=== PATIENT | female | born 1945 | race Caucasian/White ===

== ENCOUNTER → 2019-12-28 12:29 | Outpatient (CLI) | payer MEDICARE, SELFPAY ==
--- NOTE | ~2019-12-28 | MM_ITS ---
EXAMINATION: MM screening kyler BI w marychuy HISTORY: Screening TECHNIQUE: Craniocaudal and mediolateral oblique 3-D tomosynthesis images were obtained and synthetic 2-D images were generated. CAD analysis was submitted and interpreted. COMPARISON: Comparison to multiple prior studies sequentially, with oldest reviewed study dated 01/05. BREAST PARENCHYMAL COMPOSITION: The breasts are heterogenously dense, which may obscure small masses. FINDINGS: There are developing asymmetries in the upper outer quadrant of the right breast. The left breast is stable without evidence for malignancy. There are benign breast calcifications. IMPRESSION: 1. Developing right breast asymmetries. 2. Additional mammographic views and possible breast ultrasound are recommended. BI-RADS Category 0: Incomplete: Needs additional imaging evaluation. Reviewed, dictated and finalized at location A. IMPRESSION: 1. Developing right breast asymmetries. 2. Additional mammographic views and possible breast ultrasound are recommended . BI-RADS Category 0: Incomplete: Needs additional imaging evaluation.
== END ==
PROVIDERS: PCP Family Medicine; Visit Provider Obstetrics & Gynecology Gynecology
DX: Z12.31 Encounter for screening mammogram for malignant neoplasm of breast (principal); R92.8 Other abnormal and inconclusive findings on diagnostic imaging of breast
CPT/HCPCS: 77063; 77067

== ENCOUNTER → 2020-01-09 09:23 | Outpatient (CLI) | payer MEDICARE, SELFPAY ==
--- NOTE | ~2020-01-09 | MMUS_ITS ---
EXAMINATION: MM diagnostic mammo unilat RT, US breast RT complete HISTORY: Developing right breast mammographic asymmetries reported on 12/28/2019 bilateral digital scr eening mammogram examination TECHNIQUE: Additional 3-D tomosynthesis images of the right breast were performed and synthetic 2-D i mages were generated. CAD analysis was submitted and interpreted. High resolution complete right mike st ultrasound was performed. COMPARISON: 12/28/2019 bilateral digital screening mammogram FINDINGS: MAMMOGRAPHIC FINDINGS: Arterial calcifications are noted. There are scattered punctate benign microcalcifications. No malign ant calcification is evident. No reproducible mass is evident. The heterogeneous dense stroma however may obscure masses. Complete right breast ultrasound examination was performed. ULTRASOUND: 12:00 subareolar area: Parallel circumscribed hypoechoic 6.6 x 4.1 x 8.5 mm lesion with through trans mission, appearing sonographically benign 1:00 subareolar area: Parallel circumscribed 4.9 x 3.4 x 5.6 mm hypoechoic heterogeneous lesion, with out internal vascularity or suspicious shadowing 3:00 3 cm from nipple: 3 x 5.2 mm circumscribed lesion with septation, likely a small septated cyst 9:00 6 cm from nipple: Parallel circumscribed hypoechoic 12 x 4 x 8 mm lesion with internal vasculari ty, irregular margins. Ultrasound-guided biopsy is recommended. IMPRESSION: 1. 12 x 4 x 8 mm irregular mass with internal vascularity at 9:00 6 cm from nipple 2. Ultrasound-guided biopsy of 9:00 lesion 6 cm from nipple is recommended. BI-RADS Category 4: Suspicious abnormality; biopsy should be considered Reviewed, dictated and finalized at location A. IMPRESSION: 1. 12 x 4 x 8 mm irregular mass with internal vascularity at 9:00 6 cm from nip ple 2. Ultrasound-guided biopsy of 9:00 lesion 6 cm from nipple is recommended. BI-RADS Category 4: Suspicious abnormality; biopsy should be considered
== END ==
PROVIDERS: PCP Family Medicine; Visit Provider Obstetrics & Gynecology Gynecology
DX: R92.8 Other abnormal and inconclusive findings on diagnostic imaging of breast (principal)
CPT/HCPCS: 76641; 77065

== ENCOUNTER → 2021-05-09 11:07 | Outpatient (CLI) | payer MEDICARE, SELFPAY ==
--- NOTE | ~2021-05-09 | DEXA_ITS ---
Bone Density Report Name: JAMEL MARTIN Age: 75 Sex: Female Ethnicity: White Date of : 1945 Indication: osteopenia; monitoring treatment; height loss; postmenopausal Referring Provider: AMANDA ESPOSITO Study: Bone densitometry was performed. Exam Date: May 09, 2021 Accession number: [id number] Bone Density: Region BMD T-score Z-score Classification AP Spine (L1-L4) 0.875 -1.6 0.8 Osteopenia Femoral Neck (Left) 0.686 -1.5 0.6 Osteopenia Total Hip (Left) 0.762 -1.5 0.3 Osteopenia Femoral Neck (Right) 0.760 -0.8 1.3 Normal Total Hip (Right) 0.811 -1.1 0.7 Osteopenia Total Hip Mean 0.787 -1.3 0.5 Osteopenia World Health Organization criteria for BMD impression classify patients as: Normal (T-score at or above -1.0), Osteopenia (T-score between -1.0 and -2.5), or Osteoporosis (T-score at or below -2.5). 10-year Fracture Risk: FRAX not reported because: Treated for osteoporosis Previous Exams: Region Exam Age BMD T-score BMD Change BMD Change Date g/cm2 vs Baseline vs Previous AP Spine(L1-L4) 05/09/2021 75 0.875 -1.6 0.015 -0.024* 12/23/2018 73 0.899 -1.3 0.039* 0.024* 09/05/2015 70 0.875 -1.6 0.015 -0.003 01/05/2013 67 0.878 -1.5 0.018 0.018 12/17/2010 65 0.860 -1.7 Total Hip(Left) 05/09/2021 75 0.762 -1.5 -0.045* -0.006 12/23/2018 73 0.768 -1.4 -0.039* -0.033* 09/05/2015 70 0.801 -1.2 -0.006 -0.007 01/05/2013 67 0.808 -1.1 0.001 0.001 12/17/2010 65 0.807 -1.1 Total Hip(Right) 05/09/2021 75 0.811 -1.1 -0.036* -0.010 12/23/2018 73 0.822 -1.0 -0.025 -0.013 09/05/2015 70 0.835 -0.9 -0.012 -0.022 01/05/2013 67 0.857 -0.7 0.010 0.010 12/17/2010 65 0.847 -0.8 *Denotes significance at 95% confidence level, LSC for AP Spine = 0.022 g/cm2, LSC for Total Hip = 0.027 g/cm2 Clinical Information Provided by Patient: Is being treated for osteoporosis Has used the following medications: HRT (i.e. estrogen/hormone therapy), Vitamin D, Calcium Patient maximum height was 65.8 Menopause Age: 51 No regular weight bearing exercise Drinks caffeinated beverages Onset of menses at age 14 Number of children 1 Impression: The patient has low bone mass, based on th
--- NOTE | ~2021-05-09 | MM_ITS ---
EXAMINATION: MM screening kyler BI w marychuy HISTORY: Screening TECHNIQUE: Craniocaudal and mediolateral oblique 3-D tomosynthesis images were obtained and synthetic 2-D images were generated. CAD analysis was submitted and interpreted. COMPARISON: Comparison to multiple prior studies sequentially, with oldest reviewed study dated 09/2018. BREAST PARENCHYMAL COMPOSITION: The breasts are heterogenously dense, which may obscure small masses FINDINGS: There is no evidence of suspicious mass, calcification, or architectural distortion to sugg est malignancy in either breast. There has been no suspicious interval change. IMPRESSION: 1. No mammographic evidence of malignancy. 2. Recommend routine screening mammography in one year. BI-RADS Category 1: Negative Reviewed, dictated and finalized at location A. SUPERVISOR
== END ==
PROVIDERS: PCP Family Medicine; Visit Provider Obstetrics & Gynecology Gynecology
DX: Z12.31 Encounter for screening mammogram for malignant neoplasm of breast (principal); Z78.0 Asymptomatic menopausal state; M85.88 Other specified disorders of bone density and structure, other site; M85.852 Other specified disorders of bone density and structure, left thigh; M85.851 Other specified disorders of bone density and structure, right thigh
CPT/HCPCS: 77063; 77067; 77080

== ENCOUNTER → 2021-12-23 09:52 | Outpatient (CLI) | payer MEDICARE, SELFPAY ==
[2021-12-23 12:00] LABS: Influenza A QL RT-PCR Negative (Negative); Influenza B QL RT-PCR Negative (Negative); SARS-CoV-2 RNA PCR Negative
== END ==
PROVIDERS: PCP Family Medicine; Visit Provider Family Medicine
DX: J06.9 Acute upper respiratory infection, unspecified (principal); Z20.822 Contact with and (suspected) exposure to COVID-19
CPT/HCPCS: 87502; C9803; U0003; U0005

== ENCOUNTER → 2021-12-24 13:43 | Outpatient (CLI) | payer MEDICARE, SELFPAY ==
--- NOTE | ~2021-12-24 | XR_ITS ---
EXAMINATION: XR chest 2V Exam Date/Time: 12/24/2021 13:47 CDT HISTORY: cough Comparison: 09/01/2013. RESULT: Lines, tubes, and devices: None. Lungs and pleura: Senescent change. Granulomatous calcification. Biapical pleural thickening. Simila r nodular densities projecting in the retrosternal clear space, without suspicious change room attendant multip le years. Cardiomediastinal silhouette: Stable. Other: No acute osseous or upper abdominal finding. IMPRESSION: No acute cardiopulmonary process. Reviewed, dictated and finalized at location K.
== END ==
PROVIDERS: PCP Family Medicine; Visit Provider Family Medicine
DX: R05.9 Cough, unspecified (principal)
CPT/HCPCS: 71046

== ENCOUNTER 2022-07-13 17:07 | Outpatient (CLI) | payer OTHER, MEDICARE, SELFPAY ==
--- NOTE | ~2022-07-13 | MR_ITS ---
MRI of the left knee Clinical history: Pain Technique: Coronal proton density and proton density-weighted images, sagittal proton-density and T2 fat-sat images, and axial proton-density fat-saturated images were acquired. Findings: Anterior and posterior cruciate ligaments are intact. Medial collateral ligament and the la teral collateral ligament complex are intact. Popliteus tendon is intact. Medial and lateral menisci are intact, without evidence of tear. 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 Articular cartilage in the medial and lateral compartments i s relatively well-preserved, with scattered areas of minimal thinning. No suspicious bone marrow sign al abnormality seen. Extensor mechanism is intact. Minimal joint effusion present. No Jimenez's cyst. 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 Minimal degenerati ve change of the medial and lateral compartments. Reviewed, dictated and finalized at location . 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 Minimal degenerative change of the medial and lateral compartments.
== END 2022-07-13 17:08 ==
PROVIDERS: PCP Family Medicine
DX: M17.12 Unilateral primary osteoarthritis, left knee (principal)
CPT/HCPCS: 73721

== ENCOUNTER → 2022-07-24 11:25 | Outpatient (CLI) | payer MEDICARE, SELFPAY ==
--- NOTE | ~2022-07-24 | MM_ITS ---
EXAMINATION: MM screening kyler BI w marychuy HISTORY: Screening TECHNIQUE: Craniocaudal and mediolateral oblique 3-D tomosynthesis images were obtained and synthetic 2-D images were generated. CAD analysis was submitted and interpreted. COMPARISON: Comparison to multiple prior studies sequentially, with oldest reviewed study dated 05/2015. BREAST PARENCHYMAL COMPOSITION: The breasts are heterogeneously dense, which may obscure small masses FINDINGS: Mass in the upper outer quadrant of the right breast posteriorly with adjacent tissue marke r has enlarged since prior study. There is a cluster of punctate calcifications in the lateral aspect of the left breast posteriorly on CC view. There is a developing asymmetry in the upper outer quadra nt of the left breast. IMPRESSION: 1. Enlarging right breast mass upper outer quadrant posteriorly. Developing left breast asymmetry and clustered indeterminate calcifications. 2. Additional spot compression and mediolateral views with possible follow-up breast ultrasound recom mended. BI-RADS Category 0: Incomplete: Needs additional imaging evaluation. Reviewed, dictated and finalized at location A. IMPRESSION: 1. Enlarging right breast mass upper outer quadrant posteriorly. Developing lef t breast asymmetry and clustered indeterminate calcifications. 2. Additional spot compression and mediolateral views with possible follow-up b reast ultrasound recommended. BI-RADS Category 0: Incomplete: Needs additional imaging evaluation.
== END ==
PROVIDERS: PCP Family Medicine; Visit Provider Obstetrics & Gynecology Gynecology
DX: Z12.31 Encounter for screening mammogram for malignant neoplasm of breast (principal); R92.8 Other abnormal and inconclusive findings on diagnostic imaging of breast
CPT/HCPCS: 77063; 77067

== ENCOUNTER → 2022-08-21 07:58 | Outpatient (CLI) | payer MEDICARE, SELFPAY ==
--- NOTE | ~2022-08-21 | MMUS_ITS ---
EXAMINATION: MM diagnostic kyler BI w marychuy, US breast RT limited HISTORY: Right breast mass and left breast calcifications and focal asymmetry on screening mammogram TECHNIQUE: Additional 3-D tomosynthesis images of the breasts were performed and synthetic 2-D images were generated. Magnification views of the left breast are also performed. CAD analysis was submitte d and interpreted. High resolution limited right breast ultrasound was performed. COMPARISON: 07/24/2022, 05/09/2021, 01/09/2020, 12/28/2019 FINDINGS: MAMMOGRAPHIC FINDINGS: Left breast: The left breast focal asymmetry is a stable appearance with spot compression views when compared to prior mammograms. An associated biopsy marker is noted. Grouped calcifications in the pos terior third of the outer breast are too small in size and two too few in number for morphologic manuela acterization. Right breast: An approximately 12 mm mass in the posterior third of the outer breast with an associat ed biopsy marker has an appearance similar to prior mammograms with spot compression. ULTRASOUND: There is slight interval increase in size, but otherwise no other change, of a now 1.6 x 0.6 cm hypoe choic mass at the 9:00 location 6 cm from the nipple in the right breast. An internal biopsy marker i s noted. IMPRESSION: 1. Probably benign left breast calcifications and biopsy changes of the right breast mass and questio n. 2. Recommend 6 month follow-up left diagnostic mammogram to evaluate the calcifications. Recommend co rrelation with right breast biopsy results to determine if interval increase in size, with no other c oncerning change, would be of clinical concern. BI-RADS category 3, probably benign findings. Reviewed, dictated and finalized at location A. IMPRESSION: 1. Probably benign left breast calcifications and biopsy changes of the right b reast mass and question. 2. Recommend 6 month follow-up left diagnostic mammogram to evaluate the calcif ications. Recommend correlation with right breast biopsy results to determine i f interval increase in size, with no other concerning change, would be of clini stephanie concern. BI-RADS category 3, probably benign findings.
== END ==
PROVIDERS: PCP Family Medicine; Visit Provider Obstetrics & Gynecology Gynecology
DX: R92.8 Other abnormal and inconclusive findings on diagnostic imaging of breast (principal)
CPT/HCPCS: 76642; 77062; 77066; G0279

== ENCOUNTER → 2022-08-21 08:15 | Outpatient (CLI) | payer MEDICARE, SELFPAY ==
--- NOTE | ~2022-08-21 | US_ITS ---
Pelvic ultrasound. Clinical History: Postmenopausal bleeding Technique: Realtime transabdominal and transvaginal scanning of the pelvis was performed. Color flow Doppler and Doppler spectral analysis were performed. Findings: The uterus is retroverted. The endometrial stripe has a thickness of 5 mm. There is a hete rogeneous masslike lesion in the lower uterine segment or cervix measuring 1.6 x 1.2 x 1.3 cm. There is a hypoechoic fibroid towards the uterine fundus measuring 1.8 cm in diameter. Millimeter ovary seen. No adnexal mass seen. There is no evidence of free fluid in the cul de sac. Impression: No abnormal endometrial thickening. 1.8 cm fibroid at the uterine fundus. 1.6 cm heterogeneous masslike lesion at the lower uterine segment or cervix. This possibly represent additional fibroid versus any possibility of cervical mass or complex nabothian cyst. Reviewed, dictated and finalized at [facility]. Impression: No abnormal endometrial thickening. 1.8 cm fibroid at the uterine fundus. 1.6 cm heterogeneous masslike lesion at the lower uterine segment or cervix. Th is possibly represent additional fibroid versus any possibility of cervical mas s or complex nabothian cyst.
== END ==
PROVIDERS: PCP Family Medicine; Visit Provider Nurse Practitioner
DX: N95.0 Postmenopausal bleeding (principal); D25.9 Leiomyoma of uterus, unspecified
CPT/HCPCS: 76830

== ENCOUNTER 2022-10-12 00:55 | Day surgery (SDC) | payer MEDICARE, SELFPAY ==
[2022-10-05 13:30] VITALS: BMI 18.6
--- NOTE | 2022-10-05 13:52 | PC.NURSE ---
Report to the Outpatient Waiting Room, entrance under the green pavilion located off [address], at time __0830 on date __10/12/22 . Planned Procedure Time: __1030 . Time changes happen often and if your time is changed the preop area will call you the afternoon before. - You and your visitor will be asked to self-screen and do not enter if you have any COVID symptoms. - A mask is optional within the hospital at this time. Patients may have clear liquids (water, carbonated beverages, clear teas, apple juice) until 3 hours prior to surgery (0730 AM) with a maximum of 20 ounces. - No food from midnight until time of surgery - Infants may have breast milk until 4 hours before surgery, infant formula 6 hours prior to surgery. - Children will be allowed to drink immediately following surgery. If applicable, please bring a bottle or sippy cup to assist with drinking. Juice, water, soda, and popsicles are readily available. For infants on formula, please bring formula the day of surgery. Pacifiers are allowed. Take the following medications with a SIP of water the morning of surgery: __TYLENOL IF NEEDED__ DO NOT STOP ANY OF YOUR OTHER PRESCRIPTION MEDICATIONS PRIOR TO SURGERY ?EXCEPT THE FOLLOWING Medications to discontinue per physician NONE Date to take last dose Please no make-up, nail brit[place] virgin islander, hairspray, perfume, deodorant, or body powder the day of surgery. No jewelry (including any body piercings) or valuables the day of surgery, leave them at home. Please take a shower or bath the night before, or the morning of, surgery with an antibacterial soap. Wear comfortable, loose fitting clothing. Children are encouraged to wear pajamas. - Jewelry must be removed prior to entering the operating room. Rings and piercings that are not removed may be cut off. - The hospital will not accept responsibility for valuables. - Please leave all valuables, including medications, at home the day of surgery. If you are going home after surgery, a licensed retail delivery driver must drive you home. - NO public transportation without another adult if you receive anesthesia. - We recommend that an adult stay with you for 24 hours following discharge. - We also recommend that you do not drive, make important decision, drink alcoholic beverages, or take any drugs that were not prescribed by your health care provider for at least 24 hours after your discharge time. For Pediatric surgeries, we recommend two adults accompany the child home. Follow any additional instructions given to you from your surgeon. If you or anyone in your household have experienced Covid symptoms in the past week, please notify your surgeon or the nurse liaison at the phone number below for possible testing. Telephone instructions given to ____PATIENT and asked if any additional questions and then verbalized understanding. Patient advised to call surgeon office or pre surgery nurse liaison [phone] if any additional questions.
--- NOTE | 2022-10-12 08:41 | WPDHPUPDATE1 ---
History and Physical Update Update Date/Time: 10/12/22 08:41 History and Physical has been reviewed, including an updated exam of the patient. There are NO changes in the patient's condition. Risks, benefits, and alternatives have been discussed and questions answered. Patient agrees to proceed with procedure.
--- NOTE | 2022-10-12 08:41 | PM.HPGS ---
History of Present Illness History of Present Illness Consent: Risks, benefits, and alternatives have been discussed and questions answered. Patient agrees to proceed with procedure. Chief complaint: post menopaual bleeding Narrative: Roselia Sarmiento is a 77 year old female with postmenopausal bleeding and a thickened endometrium. It was recommended undergo a D&C hysteroscopy for further evaluation. Patient voiced understanding and agrees to proceed. Risks of infection, bleeding, perforation, and possible pathology are discussed. Review of Systems Review of Systems: not repeated day of surgery; patient states no changes in status [facility] Past Medical History Medical History (Updated 10/12/22 @ 08:46 by Tess Christiansen MD) Chronic rhinitis Migraine without aura and without status migrainosus, not intractable (normal spontaneous vaginal delivery) Primary osteoarthritis of both knees Vitamin B12 deficiency Vitamin D deficiency Surgical History Surgical History (Updated 10/12/22 @ 08:45 by Tess Christiansen MD) History of bilateral breast reduction surgery and breast lift 2010 History of bilateral tubal ligation History of breast biopsy 2019 benign History of hysteroscopy 2004, 2005, 2013 2004 showed simple hyperplasia without atypia 2005 and 2013 were benign History of laparoscopy 2004 Family History Family History Other Diabetes mellitus Family history of cardiovascular disease Social History Social History (Reviewed 10/01/22 @ 08:15 by Tammy Hernandez [facility]) Smoking status: Never smoker Second hand tobacco smoke exposure: No Alcohol intake: never Substance use: never Substance use type: does not use Lack of Transportation: No Lack of Food: Never True Current Housing: I Have Housing Concerned About Future Housing: No Difficulty Paying Gas/Electric Bills: No Difficulty Paying for Meds: No Currently Unemployed: No Education: Trade/Vocational Certificate Difficulty w/ Childcare or Family Care: No Living arrangements: alone Gender identity (if verbalized by the patient): Female Spiritual care concerns: No Agree to blood products: Yes Meds Home Medications and Allergies Home Medications Medication Instructions Recorded Confirmed Type calcium carbonate 500 mg-vitamin 1 tablet PO DAILY 03/27/19 10/05/22 History D3 5 mcg (200 unit) tablet (Calcium 500 + D) estradiol 0.5 mg tablet 0.5 mg PO DAILY 03/27/19 10/05/22 History medroxyprogesterone 2.5 mg tablet 5 mg PO DAILY 03/27/19 10/05/22 History (Provera) loratadine 10 mg tablet 10 mg PO DAILY 01/15/21 10/05/22 History acetaminophen 650 mg 650 mg PO .qd-bid PRN Pain 01/29/22 10/05/22 History tablet,extended release (Tylenol 8 Hour) triamcinolone acetonide 0.1 % See Rx Instructions .Route 07/29/22 10/05/22 Rx topical ointment .COMPLEX #30 grams ergocalciferol (vitamin D2) 1,250 1,250 mcg PO WEEKLY #12 caps 09/16/22 10/05/22 Rx mcg (50,000 unit) capsule (Vitamin D2) cyanocobalamin (vitamin B-12) 1,000 mcg IM MONTHLY #10 mL 10/01/22 10/05/22 Rx 1,000 mcg/mL injection solution meclizine 25 mg tablet 25 mg PO TID PRN dizziness #90 tabs 10/01/22 10/05/22 Rx montelukast 10 mg tablet 10 mg PO QHS #90 tabs 10/01/22 10/05/22 Rx (Singulair) prochlorperazine maleate 10 mg 10 mg PO Q8H PRN nausea and 10/01/22 10/05/22 Rx tablet (Compazine) vomiting #90 tabs syringe with needle 3 mL 25 gauge #12 ea 10/01/22 10/05/22 Rx x 1 (BD Luer-Derrell Syringe) Allergies Allergy/AdvReac Type Severity Reaction Status Date / Time Penicillins Allergy Unknown Hives Verified 10/05/22 13:25 cortisone AdvReac Severe facial Verified 10/05/22 13:25 flushing furosemide AdvReac Mild Pt just Verified 10/05/22 13:25 felt off Exam Const: General: healthy appearing and alert Orientation/consciousness: marzena
[2022-10-12] MEDS: ACETAMINOPHEN 500 MG TABLET 1000 MG PO (09:30)
[2022-10-12] MEDS: LACTATED RINGERS 1,000 ML 30 ML IV CONT (09:30)
--- NOTE | 2022-10-12 09:32 | WPDANESEPPF ---
Anes - Initial Pre Proc Eval Procedure: Operation Date: 10/12/22 10:30 Proposed Procedures p Hysteroscopy Dilation and Curettage - Tess Christiansen MD Date/Time: 10/12/22 09:32 Surgeon: Tess Christiansen MD Pre Op Diagnosis: post menopaual bleeding Patient Data Age: 77 Gender: F Height: 1.63 m Weight: 49.09 kg Allergies Allergy/AdvReac Type Severity Reaction Status Date / Time Penicillins Allergy Unknown Hives Verified 10/05/22 13:25 cortisone AdvReac Severe facial Verified 10/05/22 13:25 flushing furosemide AdvReac Mild Pt just Verified 10/05/22 13:25 felt off Home Medications Medication Instructions Recorded Confirmed Type calcium carbonate 500 mg-vitamin 1 tablet PO DAILY 03/27/19 10/05/22 History D3 5 mcg (200 unit) tablet (Calcium 500 + D) estradiol 0.5 mg tablet 0.5 mg PO DAILY 03/27/19 10/05/22 History medroxyprogesterone 2.5 mg tablet 5 mg PO DAILY 03/27/19 10/05/22 History (Provera) loratadine 10 mg tablet 10 mg PO DAILY 01/15/21 10/05/22 History acetaminophen 650 mg 650 mg PO .qd-bid PRN Pain 01/29/22 10/05/22 History tablet,extended release (Tylenol 8 Hour) triamcinolone acetonide 0.1 % See Rx Instructions .Route 07/29/22 10/05/22 Rx topical ointment .COMPLEX #30 grams ergocalciferol (vitamin D2) 1,250 1,250 mcg PO WEEKLY #12 caps 09/16/22 10/05/22 Rx mcg (50,000 unit) capsule (Vitamin D2) cyanocobalamin (vitamin B-12) 1,000 mcg IM MONTHLY #10 mL 10/01/22 10/05/22 Rx 1,000 mcg/mL injection solution meclizine 25 mg tablet 25 mg PO TID PRN dizziness #90 tabs 10/01/22 10/05/22 Rx montelukast 10 mg tablet 10 mg PO QHS #90 tabs 10/01/22 10/05/22 Rx (Singulair) prochlorperazine maleate 10 mg 10 mg PO Q8H PRN nausea and 10/01/22 10/05/22 Rx tablet (Compazine) vomiting #90 tabs syringe with needle 3 mL 25 gauge #12 ea 10/01/22 10/05/22 Rx x 1 (BD Luer-Derrell Syringe) Patient hx anesthesia problems: post op nausea/vomiting Family hx anesthesia problems: none Results Review: All pre-operative results and documents have been reviewed as part of the pre-operative evaluation. [facility] Past Medical History Medical History Chronic rhinitis Migraine without aura and without status migrainosus, not intractable (normal spontaneous vaginal delivery) Primary osteoarthritis of both knees Vitamin B12 deficiency Vitamin D deficiency Surgical History Surgical History History of bilateral breast reduction surgery and breast lift 2010 History of bilateral tubal ligation History of breast biopsy 2020 benign History of hysteroscopy 2004, 2005, 2013 2004 showed simple hyperplasia without atypia 2005 and 2013 were benign History of laparoscopy 2004 Family History Family History Other Diabetes mellitus Family history of cardiovascular disease Social History Social History Smoking status: Never smoker Second hand tobacco smoke exposure: No Alcohol intake: never Substance use: never Substance use type: does not use Lack of Transportation: No Lack of Food: Never True Current Housing: I Have Housing Concerned About Future Housing: No Difficulty Paying Gas/Electric Bills: No Difficulty Paying for Meds: No Currently Unemployed: No Education: Trade/Vocational Certificate Difficulty w/ Childcare or Family Care: No Living arrangements: alone Gender identity (if verbalized by the patient): Female Spiritual care concerns: No Agree to blood products: Yes Anes - Eval Final PreProcedure Day of Procedure 10/12/22 09:32 Patient weight: normal Heart: regular rate and rhythm Lungs: clear to auscultation Airway: Mallampati scale class II Neurological: alert and oriented
[2022-10-12] MEDS: FAMOTIDINE 20 MG/2 ML VIAL IV PUSH (09:35)
[2022-10-12] MEDS: ONDANSETRON INJ 4 MG/2 ML VIAL IV PUSH (09:35)
[2022-10-12 09:51] VITALS: BP 143/71; PULSE 102; RESP 14; TEMP 37.5; O2SAT 100
--- NOTE | 2022-10-12 10:01 | P.OP_ITS ---
Procedure Note - Detailed Date of Procedure 10/12/22 Pre-op Diagnosis post menopaual bleeding Post-op Diagnosis Same Procedure Performed D&C hysteroscopy Surgeon Tess Christiansen MD Anesthesia MAC Findings uterus sounds to 7cm and appears grossly atrophic; there is an anterior fibroid Description of Procedure The patient is taken to the operating room and placed under anesthesia in the dorsal lithotomy position. She was prepped and draped in the usual sterile fashion. [place] speculum was placed in the vagina and the cervix is grasped on the anterior lip with a tenaculum. The uterus is sounded to 7cm. The diagnostic hysteroscope was placed and with no abnormalities noted it is removed. The OO curette would not pass the internal os. The cervix is serially dilated to a 6 [place]. The curette then passed and the uterus was curetted in a sharp manner until a good uterine cry was noted in all areas. Minimal material was obtained consistent with the atrophic appearance. Instruments are removed. Sponge, needle, and instrument counts are correct per the OR staff. The patient was awakened from anesthesia and taken to recovery in stable condition. Estimated Blood Loss 5 Drains No Packing No Pathology Yes ( Endometrial curettings) Complications No immediate complications Condition Stable Disposition PACU
[2022-10-12 10:03] VITALS: BP 125/56; PULSE 87; RESP 16; O2SAT 100
[2022-10-12 10:30] VITALS: BP 129/62; PULSE 89; RESP 15; O2SAT 100
== END 2022-10-12 10:45 | disposition home or self-care (01) ==
PROVIDERS: PCP Family Medicine; Visit Provider Obstetrics & Gynecology Gynecology
PROC: 0U5B8ZZ Destruction of Endometrium, Via Natural or Artificial Opening Endoscopic (ICD-10-PCS; CPT 58563; principal; 2022-10-12 10:30)
DX: N95.0 Postmenopausal bleeding (principal); D25.9 Leiomyoma of uterus, unspecified; N85.8 Other specified noninflammatory disorders of uterus; E55.9 Vitamin D deficiency, unspecified; E53.8 Deficiency of other specified B group vitamins
CPT/HCPCS: 58558; 88305; A9270; J2405; J2704; J7120

== ENCOUNTER 2022-11-28 12:24 | Emergency (ER) | payer MEDICARE, SELFPAY ==
--- NOTE | 2022-11-28 12:31 | ED.UPPEXIN ---
HPI - Extremity Injury (Upper) General Chief Complaint: Wound/Laceration Stated Complaint: left thumb injury Time Seen by Provider: 11/28/22 12:53 Source: patient and RN notes reviewed Mode of arrival: ambulatory Limitations: no limitations History of Present Illness HPI narrative: 77-year-old female presents with concern for laceration to the 1st digit of her left hand. She reports just prior to arrival she was slicing ham when the knife slipped and she lacerated her finger. She is up-to-date on her tetanus vaccination. She denies decreased strength, sensation, range of motion in the digit. complaint: injury to: left and finger Related Data Home Medications Medication Instructions Recorded Confirmed calcium carbonate 500 mg-vitamin 1 tablet PO DAILY 03/27/19 10/05/22 D3 5 mcg (200 unit) tablet (Calcium 500 + D) estradiol 0.5 mg tablet 0.5 mg PO DAILY 03/27/19 10/05/22 medroxyprogesterone 2.5 mg tablet 5 mg PO DAILY 03/27/19 10/05/22 (Provera) loratadine 10 mg tablet 10 mg PO DAILY 01/15/21 10/05/22 acetaminophen 650 mg 650 mg PO .qd-bid PRN Pain 01/29/22 10/05/22 tablet,extended release (Tylenol 8 Hour) progesterone micronized 100 mg mg 11/28/22 capsule Allergies Allergy/AdvReac Type Severity Reaction Status Date / Time Penicillins Allergy Unknown Hives Verified 11/28/22 12:44 cortisone AdvReac Severe facial Verified 11/28/22 12:44 flushing furosemide AdvReac Mild Pt just Verified 11/28/22 12:44 felt off Review of Systems Review of Systems: CONSTITUTIONAL: Denies malaise, chills, sweats, or fever. SKIN: Laceration to the 1st digit of the left hand MUSCULOSKELETAL: Denies decreased strength, sensation, range of motion of the digit NEUROLOGIC: Denies numbness, weakness All systems reviewed & are unremarkable except as noted in HPI and below PMFSH Past Medical History Medical History Chronic rhinitis Migraine without aura and without status migrainosus, not intractable (normal spontaneous vaginal delivery) Primary osteoarthritis of both knees Vitamin B12 deficiency Vitamin D deficiency Surgical History Surgical History History of bilateral breast reduction surgery and breast lift 2010 History of bilateral tubal ligation History of breast biopsy 2020 benign History of hysteroscopy 2004, 2005, 2013 2005 showed simple hyperplasia without atypia 2005 and 2013 were benign History of laparoscopy 2004 Family History Family History Other Diabetes mellitus Family history of cardiovascular disease Social History Social History Smoking status: Never smoker Second hand tobacco smoke exposure: No Alcohol intake: never Substance use: never Substance use type: does not use Lack of Transportation: No Lack of Food: Never True Current Housing: I Have Housing Concerned About Future Housing: No Difficulty Paying Gas/Electric Bills: No Difficulty Paying for Meds: No Currently Unemployed: No Education: Trade/Vocational Certificate Difficulty w/ Childcare or Family Care: No Living arrangements: alone Gender identity (if verbalized by the patient): Female Spiritual care concerns: No Agree to blood products: Yes Comments At time of signature, agree with nursing past medical, surgical, social and family history. There is no relevant family history pertinent to the presenting complaint Exam Narrative: GENERAL: Well-appearing, well-nourished, and in no acute distress. HEAD: Normocephalic, atraumatic. EYES: PERRLA, conjunctivae clear, and EOMI. ENT: Mucous membranes moist. Oropharynx without edema, erythema or lesions. NECK: Supple. No lymphadenopathy CHEST: Clear to auscultation. No respiratory distr
[2022-11-28 12:41] VITALS: BP 134/85; PULSE 85; RESP 16; TEMP 37.3; O2SAT 99
== END 2022-11-28 13:28 | disposition home or self-care (01) ==
PROVIDERS: Emergency Provider Nurse Practitioner; PCP Family Medicine
DX: S61.012A Laceration without foreign body of left thumb without damage to nail, initial encounter (principal); W26.0XXA Contact with knife, initial encounter; Y93.G1 Activity, food preparation and clean up; M17.0 Bilateral primary osteoarthritis of knee; E55.9 Vitamin D deficiency, unspecified
CPT/HCPCS: 12001; 99212; G0463

== ENCOUNTER → 2023-03-17 08:27 | Outpatient (CLI) | payer MEDICARE, SELFPAY ==
--- NOTE | ~2023-03-17 | MMUS_ITS ---
EXAMINATION: MM diagnostic kyler BI w marychuy, US breast BI complete HISTORY: Six-month follow-up of left breast microcalcifications TECHNIQUE: Additional 3-D tomosynthesis images of both breasts were performed and synthetic 2-D image s were generated. CAD analysis was submitted and interpreted. High resolution complete bilateral [facility] ultrasound in including all 4 quadrants and subareolar areas was performed. COMPARISON: 08/21/2022 bilateral diagnostic mammogram and limited right breast ultrasound 07/24/2022 bilateral screening mammogram BREAST PARENCHYMAL COMPOSITION: The breasts are heterogeneously dense, which may obscure small masses . FINDINGS: MAMMOGRAPHIC FINDINGS: Stable posterior lower outer right breast mass with biopsy marker, reportedly benign biopsy result. Stable fibroglandular asymmetry. Scattered bilateral benign calcifications are noted. No linear or br anching suspicious microcalcifications are noted. No architectural distortion, skin thickening or retraction is evident. ULTRASOUND: There are bilateral scattered small hypoechoic and sonolucent benign-appearing lesions. There is however an area of concern on the left at 2:00 6 cm from the nipple, where a relatively supe rficial irregular hypoechoic approximately 2.5 x 3.5 mm antiparallel lesion is noted. Ultrasound-guid ed biopsy of this left breast 2:00 lesion is recommended. IMPRESSION: 1. Irregular antiparallel hypoechoic 2.5 x 3.5 mm left breast lesion at 2:00 6 cm from nipple 2. Ultrasound-guided biopsy of left breast 2:00 lesion is recommended BI-RADS category 4, suspicious findings. Dr. Sosa telephoned the report and ultrasound-guided biopsy recommendation for left breast 2:00 lesio n on 03/17/2023 at 1205 hours to Nurse Delisa. Reviewed, dictated and finalized at location A. TIC TECHNICIAN IMPRESSION: 1. Irregular antiparallel hypoechoic 2.5 x 3.5 mm left breast lesion at 2:00 6 cm from nipple 2. Ultrasound-guided biopsy of left breast 2:00 lesion is recommended BI-RADS category 4, suspicious findings. Dr. Sosa telephoned the report and ultrasound-guided biopsy recommendation for left breast 2:00 lesion on 03/17/2023 at 1205 hours to Nurse Delisa.
== END ==
PROVIDERS: PCP Family Medicine; Visit Provider Nurse Practitioner
DX: N63.10 Unspecified lump in the right breast, unspecified quadrant (principal); N64.4 Mastodynia; R92.8 Other abnormal and inconclusive findings on diagnostic imaging of breast
CPT/HCPCS: 76641; 77062; 77066; G0279

== ENCOUNTER → 2023-06-02 12:49 | Outpatient (CLI) | payer MEDICARE, SELFPAY ==
--- NOTE | ~2023-06-02 | XR_ITS ---
XR hip LT 2V w AP pelvis DATE: 06/02/2023 13:12 INDICATION: Left hip pain TECHNIQUE: AP pelvis. AP and lateral views of left hip COMPARISON: None FINDINGS: Osteopenia. No pelvic fracture or bone destruction. The pubic symphysis and sacroiliac join ts are normally aligned. Hip joint spaces are symmetric and relatively preserved. No fracture or disl ocation, avascular necrosis or bone destruction of the left hip. IMPRESSION: Osteopenia No pelvic or left hip fracture or dislocation or bone destruction Reviewed, dictated and finalized at location B. O MECHANIC APPRENTICE
== END ==
PROVIDERS: PCP Family Medicine; Visit Provider Family Medicine
DX: M85.852 Other specified disorders of bone density and structure, left thigh (principal)
CPT/HCPCS: 73502

== ENCOUNTER 2023-06-09 09:15 | Outpatient (CLI) | payer MEDICARE, SELFPAY ==
[2023-06-09 10:20] LABS: Influenza A QL RT-PCR Negative (Negative); Influenza B QL RT-PCR Negative (Negative); RSV RNA, RT-PCR Negative (Negative); SARS-CoV-2 RNA PCR Negative (Negative)
== END 2023-06-09 09:16 | disposition home or self-care (01) ==
LOC: ANHLAB 09:17
PROVIDERS: PCP Family Medicine; Visit Provider Physician Assistant
DX: R50.9 Fever, unspecified (principal); Z20.822 Contact with and (suspected) exposure to COVID-19
CPT/HCPCS: 87637

== ENCOUNTER 2023-08-26 09:42 | Outpatient (CLI) | payer MEDICARE, SELFPAY ==
--- NOTE | ~2023-08-26 | XR_ITS ---
EXAMINATION: [id number]_CR DATE: 08/26/2023 09:55 INDICATION: Pleurodynia. TECHNIQUE: A frontal view of the chest and 2 views on 3 radiographs of the left ribs were obtained. COMPARISON: Chest 2 views 12/24/21 FINDINGS: A calcified right lung nodule is consistent with old granulomatous disease. There is mild s carring at the lung apices. No pleural effusion or pneumothorax. The heart size is normal. IMPRESSION: 1. No rib fracture. 2. Stable mild scarring at the lung apices. Reviewed, dictated and finalized at location A.
== END 2023-08-26 09:43 ==
PROVIDERS: PCP Family Medicine; Visit Provider Physician Assistant Medical
DX: R07.81 Pleurodynia (principal); R91.8 Other nonspecific abnormal finding of lung field
CPT/HCPCS: 71101

== ENCOUNTER 2023-09-15 08:54 | Outpatient (CLI) | payer MEDICARE, SELFPAY ==
--- NOTE | ~2023-09-15 | US_ITS ---
Pelvic ultrasound. Clinical History: Postmenopausal bleeding Technique: Realtime transvaginal scanning of the pelvis was performed. Color flow Doppler and Doppler spectral analysis were performed. Findings: The uterus is retroverted, and measures 6.3 x 2.4 x 3.8 cm.. The endometrial stripe has a thickness of 5 mm. Probable ill-defined fibroid measuring 2 cm present, exophytic from the fundus. The right ovary is not visualized. No significant right ovarian or adnexal mass is seen. The left ovary measures 2.1 x 1.3 x 1.8 cm. No significant left ovarian or adnexal mass is seen. There is no evidence of free fluid in the cul de sac. Impression: No definite abnormal endometrial thickening. 2 cm exophytic uterine fibroid. Right ovary not visualized. Reviewed, dictated and finalized at [facility]. Impression: No definite abnormal endometrial thickening. 2 cm exophytic uterine fibroid. Right ovary not visualized.
== END 2023-09-15 08:55 ==
PROVIDERS: PCP Family Medicine; Visit Provider Nurse Practitioner
DX: N95.0 Postmenopausal bleeding (principal); D25.9 Leiomyoma of uterus, unspecified
CPT/HCPCS: 76830

== ENCOUNTER 2023-09-15 12:57 | Outpatient (CLI) | payer MEDICARE, SELFPAY ==
--- NOTE | ~2023-09-15 | XR_ITS ---
Lumbosacral Spine: AP, oblique, and lateral views Clinical History: Pain Findings: The normal lordotic curve is maintained. No fracture evident. There is 8mm retrolisthesis o f L3 over L4. Probable grade 1 anterolisthesis of L5 over S1. There is moderate to advanced facet art hropathy throughout the lumbar spine. There are mild degenerative disc changes. The sacroiliac joints are normally outlined. Impression: Moderate degenerative spondylosis. 8 mm retrolisthesis of L3 over L4. Probable grade 1 anterolisthesis of L5 over S1. Reviewed, dictated and finalized at location . Impression: Moderate degenerative spondylosis. 8 mm retrolisthesis of L3 over L4. Probable grade 1 anterolisthesis of L5 over S1.
== END 2023-09-15 12:58 ==
LOC: MICIMG 12:59
PROVIDERS: PCP Family Medicine; Visit Provider Physician Assistant Medical
DX: M47.896 Other spondylosis, lumbar region (principal); M43.16 Spondylolisthesis, lumbar region; M43.17 Spondylolisthesis, lumbosacral region
CPT/HCPCS: 72110

== ENCOUNTER 2024-03-15 13:54 | Outpatient (CLI) | payer MEDICARE, SELFPAY ==
--- NOTE | ~2024-03-15 | CT_ITS ---
EXAMINATION: CT abdomen pelvis w con DATE: 03/15/2024 14:28 INDICATION: Left upper quadrant abdominal pain. TECHNIQUE: Computed tomography (CT) of the abdomen and pelvis was performed with 100 mL Omnipaque 350 intravenous contrast. Automated exposure control and iterative reconstruction technique were employe d. The dose-length product was 189.37 mGy-cm. COMPARISON: CT abdomen and pelvis 10/08/2005 FINDINGS: The visualized portions of the lung bases demonstrate mild atelectasis. There is bronchiect asis and mucous plugging in right middle lobe. A calcified right lung nodule is consistent with old g ranulomatous disease. No pleural effusion. The heart size is normal. No pericardial effusion. There i s a 5 mm cyst in the liver. The gallbladder, spleen, pancreas, and adrenal glands are normal. There a re cysts in the kidneys measuring up to 5.8 cm on the right. There is stable enlargement of the vulva on the right, likely a Bartholin duct cyst. There are no dilated loops of bowel. The appendix is nor mal. There are no pathologically enlarged lymph nodes. There is no free intraperitoneal fluid. There is an umbilical hernia containing fat. There is mild lumbar spondylosis. IMPRESSION: 1. No etiology for the patient's symptoms. Reviewed, dictated and finalized at location A. 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
[2024-03-15 14:17] LABS: Estimated Glomerular Filt Rate 48
== END 2024-03-15 13:55 | disposition home or self-care (01) ==
LOC: MICIMG 13:55
PROVIDERS: PCP Family Medicine; Visit Provider Family Medicine
DX: R10.12 Left upper quadrant pain (principal)
CPT/HCPCS: 74177; Q9967

== ENCOUNTER 2024-05-10 08:58 | Outpatient (CLI) | payer MEDICARE, SELFPAY ==
--- NOTE | ~2024-05-10 | MMUS_ITS ---
EXAMINATION: MM diagnostic kyler BI w marychuy, US breast BI complete HISTORY: Six-month follow-up bilateral breast masses TECHNIQUE: Additional 3-D tomosynthesis images of the breasts were performed and synthetic 2-D images were generated. CAD analysis was submitted and interpreted. High resolution bilateral complete breas t ultrasound was performed. COMPARISON: Comparison to multiple prior studies sequentially, with oldest reviewed study dated 12/27. BREAST PARENCHYMAL COMPOSITION: Dense: The breasts are heterogeneously dense, which may obscure small masses FINDINGS: MAMMOGRAPHIC FINDINGS: There are stable benign-appearing bilateral breast calcifications. There are no new masses, calcifica tions or architectural distortion in either breast to suggest malignancy. ULTRASOUND: Complete US of all 4 quadrants of the breast/s and retroareolar region was reviewed. Right breast: At 12:00, near the areola there is an oval slightly lobulated hypoechoic mass without s ignificant posterior features. There is internal vascularity. Parallel orientation. This mass measure s 7 x 7 x 4 mm compared with 7 x 6 x 4 mm on prior examination. At 12:00 near the nipple there is mil dly prominent ducts and/or cysts which are benign. At 4:00, 2 cm from the nipple there is an oval par allel oriented 4 mm hypoechoic mass without internal vascularity or posterior features without signif icant change from prior study. At 6:00, 3 cm from the nipple there is an oval parallel oriented hypoe choic 5 mm mass with minimal internal vascularity and no significant posterior features. No significa nt change. At 9:00, 5 cm from the nipple there is parallel oriented heterogeneous predominantly hypoe choic mass with circumscribed margins measuring 1.1 x 1.6 x 0.6 cm. This compares to 1.1 x 1.6 x 1.3 cm on prior examination. No significant change. At 10:00, 3 cm from the nipple there is a benign-appe aring oval hypoechoic 6 mm mass without posterior features or internal vascularity. Left breast: At 2:00, 6 cm from the nipple there is a slightly irregular shaped hypoechoic 6 mm mass with internal vascularity, no posterior features and some angular margins. This mass is slightly larg er than on prior examination allowing for differences of technique with internal vascularity. At 2:00 , 3 cm from the nipple there is an oval hypoechoic mass with internal cystic changes, likely a cluste r of microcysts measuring 7 mm. No significant posterior features or internal vascularity. At 3:00, 6 cm from the nipple there is an oval hypoechoic 5 mm mass with low level internal echoes, posterior a coustic enhancement and no internal vascularity, likely benign. At 7:00, 2 cm from the nipple there i s an oval hypoechoic mass measuring 6 mm without internal vascularity or significant posterior featur es. At 11:00 near the nipple there is an oval hypoechoic 6 mm mass without significant change from pr ior examination. At 11:00 near the nipple there is a parallel oriented hypoechoic mass with linear ec hogenic hilum, likely benign. IMPRESSION: 1. Stable appearance to bilateral breast masses allowing for differences of technique, likely benign. 2. Recommend 6 month follow-up diagnostic bilateral mammogram and bilateral breast ultrasound recomme nded. BI-RADS category 3, probably benign findings. Reviewed, dictated and finalized at location A. 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 Stable appearance to bilateral breast masses allowing for differences of uche hnique, likely benign. 2. Recommend 6 month follow-up diagnostic bilateral mammogram and bilateral emir ast ultrasound recommended. BI-RADS category 3, probably benign findings.
== END 2024-05-10 08:59 | disposition home or self-care (01) ==
PROVIDERS: PCP Family Medicine; Visit Provider Nurse Practitioner Women's Health
DX: R92.8 Other abnormal and inconclusive findings on diagnostic imaging of breast (principal)
CPT/HCPCS: 76641; 77062; 77066; G0279

== ENCOUNTER 2024-07-06 16:58 | Outpatient (CLI) | payer MEDICARE, SELFPAY ==
--- OUTSIDE RECORDS SUMMARY | 2024-07-06 17:00 | XMS_ITS | Encounter Summary ---
Author Organization [facility] Healthcare Address [address] [place] [address] Care Team Providers Care Music Mixer Name Role Phone Unavailable Primary Care Provider Unavailabl e Reason for Visit * Diagnostic Imaging (Routine) - Closed Specialty Diagnoses / Procedures Referred By George t Referred To Contact Procedures Breast Imaging US Outside Reference Araceli Pires NP [address] [id number] [place] [address] Phone: tel: fax: Referral ID Status Reason Start Date Expiration Date Visits Re quested Visits Authorized [id number] Closed 04/05/2023 05/04/2024 1 1 Encounter Details Date Type Department Care Team (Late st Contact Info) Description 01/09/2020 12:05 AM CDT Hospital Encounter [facility] [address] [place] [id number] Social History Tobacco Use Types Packs/Day Years Used Date Smoking Tobacco: Never Smokeless Tobacco: Never Comments No Sex and Gender Information Value Date Recorded Sex Assigned at Not on file Legal Sex Female 7:32 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 There will be no report generated by a [facility] Radiologist. Narrative [facility] - 04/05/2023 8:52 AM PERSONAL BANKING ASSISTANT EXAMINATION: Images For Reference Purposes Only us Araceli Pires NP IMG MAMMO PROCEDURES Final Result [facility] documented in this encounter Visit Diagnoses Not on filedocumented in this encounter
--- OUTSIDE RECORDS SUMMARY | 2024-07-06 17:00 | XMS_ITS | Encounter Summary ---
Author Organization [facility] Healthcare Address [address] [place] [address] Care Team Providers Care Real Estate Branch Manager Name Role Phone Unavailable Primary Care Provider Unavailabl e Reason for Visit * Diagnostic Imaging (Routine) - Closed Specialty Diagnoses / Procedures Referred By George maldonado Referred To Contact Procedures Breast Imaging Screening Outside Reference Araceli Pires NP [address] [id number] [place] [address] Phone: tel: fax: Referral ID Status Reason Start Date Expiration Date Visits Re quested Visits Authorized [id number] Closed 04/05/2023 05/04/2024 1 1 Encounter Details Date Type Department Care Team (Late st Contact Info) Description 12/28/2019 Hospital Encounter [facility] [address] [place] [id number] Social History Tobacco Use Types Packs/Day Years Used Date Smoking Tobacco: Never Smokeless Tobacco: Never Comments No Sex and Gender Information Value Date Recorded Sex Assigned at Not on file Legal Sex Female 7:32 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 There will be no report generated by a [facility] Radiologist. Narrative [facility] - 04/05/2023 9:59 AM CERAMIC DESIGN ENGINEER EXAMINATION: Images For Reference Purposes Only us Araceli Pires NP IMG MAMMO PROCEDURES Final Result [facility] documented in this encounter Visit Diagnoses Not on filedocumented in this encounter
--- OUTSIDE RECORDS SUMMARY | 2024-07-06 17:00 | XMS_ITS | Encounter Summary ---
Author Organization [facility] Healthcare Address [address] [place] [address] Care Team Providers Care Turner And Former Automatic Name Role Phone Unavailable Primary Care Provider Unavailabl e Reason for Visit * Diagnostic Imaging (Routine) - Closed Specialty Diagnoses / Procedures Referred By George t Referred To Contact Procedures Breast Imaging Diagnostic Outside Reference Araceli Pires NP [address] [id number] [place] [address] Phone: tel: fax: Referral ID Status Reason Start Date Expiration Date Visits Re quested Visits Authorized [id number] Closed 04/05/2023 05/04/2024 1 1 Encounter Details Date Type Department Care Team (Late st Contact Info) Description 01/09/2020 Hospital Encounter [facility] [address] [place] [id number] Social History Tobacco Use Types Packs/Day Years Used Date Smoking Tobacco: Never Smokeless Tobacco: Never Comments No Sex and Gender Information Value Date Recorded Sex Assigned at Not on file Legal Sex Female 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. There will be no report generated by a [facility] Radiologist. Narrative [facility] - 04/05/2023 8:37 AM METALLURGICAL TECHNICIAN EXAMINATION: Images For Reference Purposes Only us Araceli Pires NP IMG MAMMO PROCEDURES Final Result [facility] documented in this encounter Visit Diagnoses Not on filedocumented in this encounter
--- OUTSIDE RECORDS SUMMARY | 2024-07-06 17:00 | XMS_ITS | Clinical Summary ---
Author Organization [facility] Address [address] [place] [id number] Care Team Providers Care Ripsawyer Name Role Phone Unavailable Primary Care Provider Unavailabl e Social History Tobacco Use Types Packs/Day Years Used Date Smoking Tobacco: Never Assessed Comments Unknown Sex and Gender Information Value Date Recorded Sex Assigned at Not on file Legal Sex Female 7:39 PM CDT Gender Identity Not on file Sexual Orientation Not on file Plan of Treatment Health Maintenance Due Date Last Done Comments Hepatitis C 1963 DTaP, Tdap and Td Vaccines ( 1 - Tdap) 1965 Zoster Vaccines (1 of 2) 1996 Dexa Scan (General) 06/30/2011 Pneumococcal Vaccine: 65+ Ye ars (1 of 1 - PCV) 06/30/2011 RSV Immunization or 60+ Years (1 - 1-dose 75+ series) 2021 COVID-19 Vaccine (2023-2 5 season) 2023 Influenza Adult (#1) 2024 Meningococcal B Vaccine Aged Out No l onger eligible based on patient's age to complete this topic Meningococcal Vaccine Aged Out No taiwo trinity eligible based on patient's age to complete this topic RSV Immunizations Under 20 Months Aged Out No longer eligible based on patient's age to complete this topic
--- OUTSIDE RECORDS SUMMARY | 2024-07-06 17:00 | XMS_ITS | Clinical Summary ---
Author Organization [facility] Address [address] Attn: Epic Prelude ADT [place] [address] Care Team Providers Care Rubber Washer Name Role Phone Unavailable Primary Care Provider Unavailabl e Social History Tobacco Use Types Packs/Day Years Used Date Smoking Tobacco: Never Assessed Comments Unknown Sex and Gender Information Value Date Recorded Sex Assigned at Not on file Legal Sex Female 11:10 PM CDT Gender Identity Not on file Sexual Orientation Not on file Plan of Treatment Health Maintenance Due Date Last Done Comments DTAP/TDAP/TD VACCINES (1 - Tdap) 1964 PNEUMOCOCCAL VACCINE 50+ YEARS (1 of 1 - PCV) 06/29/18 97 ZOSTER VACCINE (1 of 2) 1996 OSTEOPOROSIS SCREENING 06/30/2011 RSV VACCINE (60+ or ) (1 - 1-dose 75+ series) 2021 INFLUENZA VACCINE (#1) 2023
--- OUTSIDE RECORDS SUMMARY | 2024-07-06 17:00 | XMS_ITS | Clinical Summary ---
Author Organization [facility] Address [address] [place] [address] Care Team Providers Care Circular Saw Operator Name Role Phone Camryn Noe MD Primary Care Provider [phone] Tess Christiansen MD Unavailable [phone] Allergies Active Allergy Reactions Criticality Noted Date Comments Penicillins Hives Medium 02/01/2020 Medications estradioL (ESTRACE) 0.5 mg tablet TK 1 T PO QD 11/06/19 20 Active medroxyPROGES TERone (PROVERA) 5 mg tablet TK 1 T PO DAILY 12/19/19 20 Active meclizine (ANTIVERT) 25 mg tablet 07/03/2014Meclizine hcl, po solid 25 mg TabletPOBID PRNCurrent Medication 07/04/19 15 Active ibuprofen (ADVIL,MOTRIN ) 400 mg tablet 07/03/2014Ibuprofen, po solid 400 mg PulxodFDT0Q PRN painCurrent Medication 07/04/19 15 Active cetirizine (ZyrTEC) 10 mg tablet 07/03/2014Zyrtec, po solid 10 mg TabletPOdailyCurrent Medication 07/04/19 15 Active cyanocobalami n/folic acid (vitamin Z61-hxxlf acid) 500-400 mcg tablet 07/03/2014Vitamin r24-dddaa acid, po solid 500-400mcg TabletPOdailyCurrent Medication 07/04/19 15 Active cyanocobalami n (Vitamin B-12) 1,000 mcg/mL injection INJECT 1000 MCG INTRAMUSCULARLY MONTHLY DIRECTED Active azithromycin (ZITHROMAX) 250 mg tablet TAKE 2 TABLETS BY MOUTH TODAY, THEN TAKE 1 TABLET DAILY FOR 4 DAYS A ctive Tdap (Boostrix Tdap) 2.5-8-5 Lf-mcg-Lf/0.5 mL vaccine ADM 0.5ML IM UTD Ac tive montelukast (SINGULAIR) 10 mg tablet 10 MG ORALLY EVERY DAY AT BEDTIME Active ergocalcifero l (VITAMIN D) 50,000 unit capsule 1250 MCG ORALLY WEEKLY Active cyclobenzapri ne (FLEXERIL) 10 mg tablet Take 1 tablet 3 times a day by oral route as needed. Active triamcinolone (KENALOG) 0.1 % ointment APPLY THIN LAYER EXTERNALLY TO THE AFFECTED AREA TWICE DAILY Active progesterone (PROMETRIUM) 100 mg capsule Take 1 capsule (100 mg total) by mouth Active ROPivacaine (NAROPIN) 5 mg/mL (0.5 %) injection in office 02/24/20 23 Active triamcinolone (Kenalog) 10 mg/mL injection in office 09/17/19 23 Active triamcinolone (KENALOG) 40 mg/mL injection in office 02/24/20 23 Active BUPivacaine (MARCAINE) 0.5 % (5 mg/mL) injection Take 4 mL by injection route. 07/16/19 24 Active Active Problems Problem Noted Date Diagnosed Date Abnormal mammogram of right breast 02/01/2020 Breast mass, right 02/01/2020 Encounters Date Type Department Care Team Description 06/02/2024 8:48 AM FEDERAL JAVA DEVELOPER - 06/02/2024 11:59 PM FEDERAL JAVA DEVELOPER Hospital Encounter [facility] Medical Office Bldg [address] [address] Postmenopause Discharge Disposition: Discharge to home or self care from Last 3 Months Surgical History Surgery Date Site/Laterality Comments BREAST BIOPSY 02/14/2020 Right Family History Medical History Relation Name Comments Breast cancer Daughter Relation Name Status Comments Daughter Social History Tobacco Use Types Packs/Day Years Used Date Smoking Tobacco: Never Smokeless Tobacco: Never Comments No Sex and Gender Information Value Date Recorded Sex Assigned at Not on file Legal Sex Female 7:32 PM FEDERAL JAVA DEVELOPER Gender Identity Not on file Sexual Orientation Not on file Obstetrics History Last Filed Vital Signs Vital Sign Reading Time Taken Comments Blood Pressure - - Pulse - - Temperature - - Respiratory Rate - - Oxygen Saturation - - Inhaled Oxygen Concentration - - Weight 49.9 kg (110 lb 0.2 oz) 10/26/2023 10:32 AM CDT Height 162.6 cm (5' 4.02 ) 10/26/2023 10:32 AM C DT Body Mass Index 18.87 10/26/2023 10:32 AM CDT Plan of Treatment Health Maintenance Due Date Last Done Comments Depression Screening 1945 Fall Risk Assessment 1945 Hepatitis C Screening 1945 Hepatitis B Screening 1964 Zoster Vaccine (1 of 2) 1996 Well Visit 65+ 06/30/2011 Influenza Vaccine (#1) 2023 0, 02/04/2019, 02/09/2017, Additional history exists Osteoporosis Screening-Bone Density Scan 06/02/2026 06/02/2024 DTaP/Tdap/Td Vaccine (2 - Td or Tdap) 05/20/2027 05/20/2017 Pneumococcal vaccine 65+ Completed 02/03/2018, 02/18 Procedures Procedure Name Priority Date/Time Associated Diagnosis Comments DEXA AXIAL SKELETON BONE DENSITY 1 OR MORE SITES Schedule Routine, Read Routine (OP Routine) 06/02/2024 9:13 AM FEDERAL JAVA DEVELOPER Postmenopause from Last 3 Months Results * Dexa Axial Skeleton Bone Density 1 or 2 Site (06/02/2024 9:13 AM FEDERAL JAVA DEVELOPER) Anatomical Region Laterality Modality Body N/A Mammography 06/06/2024 8:32 AM FEDERAL JAVA DEVELOPER Narrative 06/06/2024 8:33 AM FEDERAL JAVA DEVELOPER EXAM DESCRIPTION: DEXA AXIAL SKELETON BONE DENSITY 1 OR MORE SITES REASON FOR STUDY: 78 y/o year old F with given history of: Postmenopausal status. History taking vitamin-D, calcium and hormone replacement therapy. 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 CLINICAL INFORMATION: Current height: 64 inches Maximum height: 65.75 inches Weight: 110 pounds Risk factors: None COMPARISON: None available FINDINGS: AP LUMBAR SPINE L1-L4: Total BMD is 0.875 g/cm2 T-score is -1.6 LEFT HIP: Total BMD is 0.870 g/cm2 T-score is -0.6 Femoral neck BMD is 0.804 g/cm2 T-score is -0.4 FRAX: 10 year risk for a major osteoporotic fracture is 7.7 %, 10 year risk for a hip fracture is 1.2 % IMPRESSION: Low bone mass REFERENCE: Bone mineral density: T-Score: Normal (T-score above or = -1.0) Low bone mass (T-score between -1.0 and -2.5) replaces the previously used term osteopenia Osteoporosis (T-score = or below -2.5) Z-Score: Within the expected range for age (Z-score above -2.0) Below the expected range for age (Z-score is -2.0 or below) Please see below follow up recommendations. Medical evaluation for secondary causes of low bone mineral density may be appropriate. FRAX is a World Health Organization validated fracture risk assessment tool that calculates a person's 10 year probability of a major osteoporosis related fracture and hip fracture. According to the National Osteoporosis Foundation guidelines, postmenopausal women and men age 50 or older with low bone mass and a 10 year probability of a major osteoporosis related fracture = or greater than 20% or a 10 year probability of a hip fracture = or greater than 3% should be considered for pharmacological treatment for the prevention of osteoporosis. For further information, including treatment recommendations, please refer to the 2019 ISCD Official Positions (http://www.iscd.org) and the NOF's Clinician's Guide to Prevention and Treatment of Osteoporosis (http://www.nof.org/professionals/clinical-guidelines) THIS IS AN ELECTRONICALLY VERIFIED FINAL REPORT 06/06/2024 8:33 AM - Electronically signed by Alyson Pandey M.D. TW: TW Report ID: [id number] Reading Location: [id number] Procedure Note Alyson Pandey MD - 06/06/2024 EXAM DESCRIPTION: DEXA AXIAL SKELETON BONE DENSITY 1 OR MORE SITES REASON FOR STUDY: 78 y/o year old F with given history of:Postmenopausal status. History taking vitamin-D, calcium and hormone replacementtherapy. 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 CLINICAL INFORMATION: Current height: 64 inches Maximum height: 65.75 inches Weight: 110 pounds Risk factors: None COMPARISON: None available FINDINGS: AP LUMBAR SPINE L1-L4: Total BMD is 0.875 g/cm2 T-score is -1.6 LEFT HIP: Total BMD is 0.870 g/cm2 T-score is -0.6 Femoral neck BMD is 0.804 g/cm2 T-score is -0.4 FRAX: 10 year risk for a major osteoporotic fracture is 7.7 %, 10 year risk fora hip fracture is 1.2 % IMPRESSION: Low bone mass REFERENCE: Bone mineral density: T-Score: Normal (T-score above or = -1.0) Low bone mass (T-score between -1.0 and -2.5) replaces thepreviously used term osteopenia Osteoporosis (T-score = or below -2.5) Z-Score: Within the expected range for age (Z-score above -2.0) Below the expected range for age (Z-score is -2.0 or below) Please see below follow up recommendations. Medical evaluation forsecondary causes of low bone mineral density may be appropriate. FRAX is a World Health Organization validated fracture risk assessmenttool that calculates a person's 10 year probability of a major osteoporosisrelated fracture and hip fracture. According to the National OsteoporosisFoundation guidelines, postmenopausal women and men age 50 or older with low bonemass and a 10 year probability of a major osteoporosis related fracture = or greater than 20% or a 10 year probability of a hip fracture = or greaterthan 3% should be considered for pharmacological treatment for the preventionof osteoporosis. For further information, including treatment recommendations, please referto the 2019 ISCD Official Positions (http://www.iscd.org) and the NOF's Clinician's Guide to Prevention and Treatment of Osteoporosis (http://www.nof.org/professionals/clinical-guidelines) THIS IS AN ELECTRONICALLY VERIFIED FINAL REPORT 06/06/2024 8:33 AM - Electronically signed by Alyson Pandey M.D. TW: TW Report ID: [id number] Reading Location: [place] [address] Tess Christiansen MD IMG DXA PROCEDURES Final Result from Last 3 Months Insurance MEDICARE ADVANTAGE Member Subscriber Plan / Payer (Ef fective 2019-Present) Name:Roselia Sarmiento Relation to Subscriber:Self Name:Roselia Sarmiento Payer ID:[id number] (NAIC) Type:[facility] MEDICARE Address: [place] [phone] MEDICARE ADVANTAGE Care Teams Circular Saw Operator Relationship Specialty Start Date End Date Camryn Noe MD PCP - General Family Medicine 01/10/20 Tess Christiansen MD [address] [address] Referring Physician Gynecology 03/22/23
--- OUTSIDE RECORDS SUMMARY | 2024-07-06 17:00 | XMS_ITS | Clinical Summary ---
Author Organization 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 Gender Identity Not on file Sexual Orientation Not on file Plan of Treatment Health Maintenance Due Date Last Done Comments DEXA Bone Density 1945 Hepatitis C Virus (HCV) Screening 1945 Zoster Immunization (1 of 2) 1996 Respiratory Syncytial Virus (RSV) Immunization (Adult) (1 - 1-dose 75+ series) 2021 Influenza Immunization (#1) 12/19/[address]32 12/2019, 02/04/2019, 02/09/2017, Additional history exists SARS-COV-2 Immunization ( season) 2023 DTaP/Tdap/Td Immunization Discontinued 05/20/2017 TdaP Immunization Completed 05/20/2017 Pneumococcal Immunization (50+ years) Completed 02/03/2018, 03/13/2016 Pneumococcal Immunization Combined Discontinued 02/03/2018, 03/13/2016 Hepatitis B Immunization Aged Out No longer eligible based on patient's age to complete this topic Meningococcal Immunization (ACWY) Aged Out No longer eligible based on patient's age to complete this topic Rotavirus Immunization Aged Out No lo nger eligible based on patient's age to complete this topic
--- OUTSIDE RECORDS SUMMARY | 2024-07-06 17:00 | XMS_ITS | Encounter Summary ---
Author Organization [facility] Healthcare Address [address] [place] [address] Care Team Providers Care Raw Scales Operator Name Role Phone Unavailable Primary Care Provider Unavailabl e Reason for Visit * Diagnostic Imaging (Routine) - Closed Specialty Diagnoses / Procedures Referred By George maldonado Referred To Contact Procedures Breast Imaging Screening Outside Reference Araceli Pires NP [address] [id number] [place] [address] Phone: tel: fax: Referral ID Status Reason Start Date Expiration Date Visits Re quested Visits Authorized [id number] Closed 04/05/2023 05/04/2024 1 1 Encounter Details Date Type Department Care Team (Late st Contact Info) Description 12/23/2018 Hospital Encounter [facility] [address] [place] [id number] Social History Tobacco Use Types Packs/Day Years Used Date Smoking Tobacco: Never Smokeless Tobacco: Never Comments No Sex and Gender Information Value Date Recorded Sex Assigned at Not on file Legal Sex Female 7:32 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 Gender Identity Not on file Sexual Orientation Not on file documented as of this encounter Plan of Treatment Not on file documented as of this encounter Procedures Procedure Name Priority Date/Time Associated Diagnosis Comments BREAST IMAGING MG SCREENING OUTSIDE REFERENCE Routine 12/23/2018 12:00 AM CDT documented in this encounter Results * Breast Imaging Screening Outside Reference (12/23/2018 12:00 AM CDT) Impressions RAD_MAMMO_[facility] - 04/05/2023 8:32 AM PAPER 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 These images are for Reference purposes only and have not been reviewed by [facility] Radiology. There will be no report generated by a [facility] Radiologist. Narrative RAD_MAMMO_[facility] - 04/05/2023 8:32 AM PAPER 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 EXAMINATION: Images For Reference Purposes Only us Araceli Pires NP IMG MAMMO PROCEDURES Final Result RAD_MAMMO_[facility] documented in this encounter Visit Diagnoses Not on filedocumented in this encounter
--- OUTSIDE RECORDS SUMMARY | 2024-07-06 17:00 | XMS_ITS | Referral Summary ---
Author Organization [facility] Address [address] [place] [address] Care Team Providers Care Timber Estimator Name Role Phone Camryn Noe MD Primary Care Provider [phone] Tess Christiansen MD Unavailable [phone] Encounters Date Type Department Care Team Description 06/02/2024 8:48 AM CORN 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 - 06/02/2024 11:59 PM CORN 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 Hospital Encounter [facility] Medical Office Bl 1 Breast [facility] [address] [place] [address] Postmenopause Discharge Disposition: Discharge to home or self care from Last 3 Months Allergies Active Allergy Reactions Criticality Noted Date [...] mg tablet 07/03/2014Ibuprofen, po solid 400 mg [id number] PRN painCurrent Medication 07/04/19 15 Active cetirizine (ZyrTEC) 10 mg tablet 07/03/2014Zyrtec, po solid 10 mg TabletPOdailyCurrent Medication 07/04/19 15 Active cyanocobalami n/folic acid (vitamin A49-skmyf acid) 500-400 mcg tablet 07/03/2014Vitamin j98-vbdtn acid, po solid 500-400mcg TabletPOdailyCurrent Medication 07/04/19 [...] right breast 02/01/2020 Breast mass, right 02/01/2020 Social History Tobacco Use Types Packs/Day Years Used Date Smoking Tobacco: Never Smokeless Tobacco: Never Comments No Sex and Gender Information Value Date Recorded Sex Assigned at Not on file Legal Sex Female 7:32 PM CORN 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 Gender Identity Not on file Sexual Orientation Not on file Last Filed Vital Signs Vital Sign Reading [...] 10/26/2023 10:32 AM CDT Plan of Treatment Not on file Procedures Procedure Name Priority Date/Time Associated Diagnosis Comments DEXA AXIAL SKELETON BONE DENSITY 1 OR MORE SITES Schedule Routine, Read Routine (OP Routine) 06/02/2024 9:13 AM CORN 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 Postmenopause from Last 3 Months Results * Dexa Axial Skeleton Bone Density 1 or 2 Site (06/02/2024 9:13 AM CORN 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) Anatomical Region Laterality Modality Body N/A Mammography 06/06/2024 8:32 AM CORN 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 Narrative 06/06/2024 8:33 AM CORN 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 EXAM DESCRIPTION: DEXA AXIAL SKELETON BONE DENSITY 1 OR MORE SITES REASON FOR STUDY: 78 y/o year old F with given history of: Postmenopausal status. History taking vitamin-D, calcium and hormone replacement therapy. 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 TW: TW Report ID: [id number] Reading Location: [id number] Procedure Note Alyson Pandey MD - 06/06/2024 EXAM DESCRIPTION: DEXA AXIAL SKELETON BONE DENSITY 1 OR MORE SITES REASON FOR STUDY: 78 y/o year old F with given history of:Postmenopausal status. History taking vitamin-D, calcium and hormone replacementtherapy. Heat Treat Supervisor/Model: [employer] A (S/N [id number]) Facility LSC value of 0.022 for the [...] Alyson Pandey M.D. TW: TW Report ID: [id number] Reading Location: [place] [address] Tess Christiansen MD IMSheila DXA PROCEDURES Final Result from Last 3 Months Insurance [facility] MEDICARE ADVANTAGE [facility] MEDICARE ADVANTAGE Care Teams Timber Estimator Relationship Specialty Start Date End Date Camryn Noe MD PCP - General Family Medicine 01/10/20 Tess Christiansen MD 2022 [facility] [address] [place] [address] Referring Physician Gynecology 03/22/23
[2024-07-06 17:47] LABS: Influenza A QL RT-PCR Negative (Negative); Influenza B QL RT-PCR Negative (Negative); RSV RNA, RT-PCR Negative (Negative); SARS-CoV-2 RNA PCR Negative (Negative)
== END 2024-07-06 16:59 | disposition home or self-care (01) ==
LOC: ANHLAB 16:59
PROVIDERS: PCP Family Medicine; Visit Provider Student in an Organized Health Care Education/Training Program
DX: R09.89 Other specified symptoms and signs involving the circulatory and respiratory systems (principal); Z20.822 Contact with and (suspected) exposure to COVID-19
CPT/HCPCS: 87637

== ENCOUNTER 2024-08-03 12:46 | Outpatient (CLI) | payer MEDICARE, SELFPAY ==
--- NOTE | ~2024-08-03 | US_ITS ---
EXAM: RENAL ULTRASOUND HISTORY: Follow-up renal cysts COMPARISON: Reference is made to a CT examination of the abdomen and pelvis dated 03/15/2024. FINDINGS: RIGHT KIDNEY: 11.8 x 4.1 x 5.1 cm. No hydronephrosis or bulky renal calculi. A single rounded avascular anechoic focus is present within the lower pole of the right kidney measur ing 7.7 x 5.0 x 4.6 cm, consistent with a simple cyst for which no further follow-up is needed. The remainder of the parenchyma of the right kidney is otherwise unremarkable in echogenicity. LEFT KIDNEY: 12.6 x 3.9 x 4.2 cm No hydronephrosis or renal calculi. A single rounded avascular anechoic focus is present within the upper pole of the left kidney measuri ng 4.5 x 3.8 x 4.0 cm, consistent with a simple cyst for which no further follow-up is needed. The remainder of the parenchyma of the left kidney is otherwise unremarkable in echogenicity BLADDER: The bladder is distended, and otherwise unremarkable. The right ureteral jet was visualized. Despite prolonged interrogation, the left ureteral jet was not visualized. IMPRESSION: No hydronephrosis or renal calculi. Simple cysts within the bilateral kidneys for which no further follow-up is needed. Reviewed, dictated and finalized at location A. IMPRESSION: No hydronephrosis or renal calculi. Simple cysts within the bilateral kidneys for which no further follow-up is nee ded.
--- OUTSIDE RECORDS SUMMARY | 2024-08-03 13:04 | XMS_ITS | Encounter Summary ---
Author Organization [facility] Healthcare Address [address] [place] [address] Care Team Providers Care Cementing Bulk Material Operator Name Role Phone Unavailable Primary Care Provider Unavailabl e Reason for Visit * Diagnostic Imaging (Routine) - Closed Specialty Diagnoses / Procedures Referred By George t Referred To Contact Procedures Breast Imaging Diagnostic Outside Reference Araceli Pires NP [address] [phone] [place] [address] Phone: tel: fax: Referral ID Status Reason Start Date Expiration Date Visits Re quested Visits Authorized [id number] Closed 04/05/2023 05/04/2024 1 1 Encounter Details Date Type Department Care Team (Late st Contact Info) Description 01/09/2020 Hospital Encounter [facility]) [address] [place] [phone] Social History Tobacco Use Types Packs/Day Years Used Date Smoking Tobacco: Never Smokeless Tobacco: Never Comments No Sex and Gender Information Value Date Recorded Sex Assigned at Not on file Legal Sex Female 7:32 PM PROFESSOR 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 There will be no report generated by a [facility] Radiologist. Narrative RAD_MAMMO_[facility] - 04/05/2023 8:37 AM PROFESSOR OF VISUAL ARTS EXAMINATION: Images For Reference Purposes Only us Araceli Pires NP IMG MAMMO PROCEDURES Final Result RAD_MAMMO_[facility] documented in this encounter Visit Diagnoses Not on filedocumented in this encounter
--- OUTSIDE RECORDS SUMMARY | 2024-08-03 13:04 | XMS_ITS | Encounter Summary ---
Author Organization [facility] Healthcare Address [address] [place] [address] Care Team Providers Care Tool Machine Setup Operator Name Role Phone Unavailable Primary Care Provider Unavailabl e Reason for Visit * Diagnostic Imaging (Routine) - Closed Specialty Diagnoses / Procedures Referred By George maldonado Referred To Contact Procedures Breast Imaging Screening Outside Reference Aarceli Pires NP [address] [id number] [place] [address] Phone: tel: fax: Referral ID Status Reason Start Date Expiration Date Visits Re quested Visits Authorized [id number] Closed 04/05/2023 05/04/2024 1 1 Encounter Details Date Type Department Care Team (Late st Contact Info) Description 12/28/2019 Hospital Encounter [facility] [address] [place] [address] Social History Tobacco Use Types Packs/Day Years Used Date Smoking Tobacco: Never Smokeless Tobacco: Never Comments No Sex and Gender Information Value Date Recorded Sex Assigned at Not on file Legal Sex Female 7:32 PM CONCERT PROMOTER Gender Identity Not on file Sexual Orientation [...] CDT) Impressions RAD_MAMMO_[facility] - 04/05/2023 9:59 AM CONCERT PROMOTER These images are for Reference purposes only and have not been reviewed by [facility] Radiology. There will be no report generated by a [facility] Radiologist. Narrative RAD_MAMMO_[facility] - 04/05/2023 9:59 AM CONCERT PROMOTER EXAMINATION: Images For Reference Purposes Only us Araceli Pires NP IMG MAMMO PROCEDURES Final Result RAD_MAMMO_[facility] documented in this encounter Visit Diagnoses Not on filedocumented in this encounter
--- OUTSIDE RECORDS SUMMARY | 2024-08-03 13:04 | XMS_ITS | Clinical Summary ---
Author Organization [facility] Address [address] [place] [address] Care Team Providers Care Parking Supervisor Name Role Phone Unavailable Primary Care Provider Unavailabl e Social History Tobacco Use Types Packs/Day Years Used Date Smoking Tobacco: Never Assessed Comments Unknown Sex and Gender Information Value Date Recorded Sex Assigned at Not on file Legal Sex Female 9:15 AM HALL CLERK Gender Identity Not on file Sexual Orientation [...]
--- OUTSIDE RECORDS SUMMARY | 2024-08-03 13:04 | XMS_ITS | Encounter Summary ---
Author Organization [facility] Healthcare Address [address] [place] [address] Care Team Providers Care Signal Mechanic Name Role Phone Unavailable Primary Care Provider Unavailabl e Reason for Visit * Diagnostic Imaging (Routine) - Closed Specialty Diagnoses / Procedures Referred By George maldonado Referred To Contact Procedures Breast Imaging Screening Outside Reference Araceli Pires NP [address] [id number] [place] [address] Phone: tel: fax: Referral ID Status Reason Start Date Expiration Date Visits Re quested Visits Authorized [id number] Closed 04/05/2023 05/04/2024 1 1 Encounter Details Date Type Department Care Team (Late st Contact Info) Description 12/23/2018 Hospital Encounter [facility] [address] [place] [phone] Social History Tobacco Use Types Packs/Day Years Used Date Smoking Tobacco: Never Smokeless Tobacco: Never Comments No Sex and Gender Information Value Date Recorded Sex Assigned at Not on file Legal 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 There will be no report generated by a [facility] Radiologist. Narrative RAD_MAMMO_[facility] - 04/05/2023 8:32 AM FIRE LOSS PREVENTION ENGINEER EXAMINATION: Images For Reference Purposes Only us Araceli Pires NP IMG MAMMO PROCEDURES Final Result RAD_MAMMO_[facility] documented in this encounter Visit Diagnoses Not on filedocumented in this encounter
--- OUTSIDE RECORDS SUMMARY | 2024-08-03 13:04 | XMS_ITS | Encounter Summary ---
Author Organization [facility] Address [address] [place] [address] Care Team Providers Care Student Financial Aid Manager Name Role Phone Unavailable Primary Care Provider Unavailabl e Reason for Visit * Diagnostic Imaging (Routine) - Closed Specialty Diagnoses / Procedures Referred By George t Referred To Contact Procedures Breast Imaging US Outside Reference Araceli Pires NP [id number] [place] [address] Phone: tel: fax: Referral ID Status Reason Start Date Expiration Date Visits Re quested Visits Authorized [id number] Closed 04/05/2023 05/04/2024 1 1 Encounter Details Date Type Department Care Team (Late st Contact Info) Description 01/09/2020 12:05 AM CDT Hospital Encounter [facility] [address] [place] [address] Social History Tobacco Use Types Packs/Day Years Used Date Smoking Tobacco: Never Smokeless Tobacco: Never Comments No Sex and Gender Information Value Date Recorded Sex Assigned at Not on file Legal Sex Female 7:32 PM DIET TECH Gender Identity Not on file Sexual Orientation [...] CDT) Impressions [facility]_M[facility]MO[facility] - 04/05/2023 8:52 AM DIET TECH These images are for Reference purposes only and have not been reviewed by [facility]. There will be no report generated by a [facility] Radiologist. Narrative [facility]_MAMMO[facility] - 04/05/2023 8:52 AM DIET TECH EXAMINATION: Images For Reference Purposes Only us Araceli Pires NP IMG MAMMO PROCEDURES Final Result [facility] documented in this encounter Visit Diagnoses Not on filedocumented in this encounter
--- OUTSIDE RECORDS SUMMARY | 2024-08-03 13:04 | XMS_ITS | Clinical Summary ---
Author Organization [facility] Address [address] [place] [id number] Care Team Providers Care Limehouse Worker Name Role Phone Unavailable Primary Care Provider [...] 1996 Dexa Scan (General) 06/30/2011 Pneumococcal Vaccine: 50+ Ye ars (1 of 1 - PCV) 06/30/2011 RSV Immunization or 60+ Years (1 - 1-dose 75+ series) 2021 COVID-19 Vaccine (2023-2 5 season) 2023 Meningococcal B Vaccine Aged Out No l onger eligible based on patient's age to complete this topic Meningococcal Vaccine Aged Out No taiwo trinity eligible based on patient's age to complete this topic RSV Immunizations Under 20 Months Aged Out No longer eligible based on patient's age to complete this topic
--- OUTSIDE RECORDS SUMMARY | 2024-08-03 13:04 | XMS_ITS | Referral Summary ---
Author Organization [facility] Address [address] [place] [id number] Care Team Providers Care Treatment Specialist Name Role Phone Camryn Noe MD Primary Care Provider [phone] Tess Christiansen MD Unavailable [phone] Encounters Date Type Department Care Team Description 07/28/2024 Telephone [facility] [address] [place] [address] Wanda Buitrago RN Medical Records Request 06/02/2024 8:48 AM REPORT CHECKER - 06/02/2024 11:59 PM REPORT CHECKER Hospital Encounter [facility] Medical Office Bldg [address] [facility] [address] [place] [address] Postmenopause Discharge Disposition: Discharge to home or [...] mg tablet 07/03/2014Ibuprofen, po solid 400 mg [id number] PRN painCurrent Medication 07/04/19 15 Active cetirizine (ZyrTEC) 10 mg tablet 07/03/2014Zyrtec, po solid 10 mg TabletPOdailyCurrent Medication 07/04/19 15 Active cyanocobalami n/folic acid (vitamin P59-yexdi acid) 500-400 mcg tablet 07/03/2014Vitamin e28-npzio acid, po solid 500-400mcg TabletPOdailyCurrent Medication 07/04/19 [...] on file Legal Sex Female 7:32 PM REPORT CHECKER Gender Identity Not on file Sexual Orientation [...] Read Routine (OP Routine) 06/02/2024 9:13 AM REPORT CHECKER Postmenopause from Last 3 Months Results * Dexa Axial Skeleton Bone Density 1 or 2 Site (06/02/2024 9:13 AM REPORT CHECKER) Anatomical Region Laterality Modality Body N/A Mammography 06/06/2024 8:32 AM REPORT CHECKER Narrative 06/06/2024 8:33 AM REPORT CHECKER EXAM DESCRIPTION: DEXA AXIAL SKELETON BONE DENSITY 1 OR MORE SITES REASON FOR STUDY: 78 y/o year old F with given history of: Postmenopausal status. History taking vitamin-D, calcium and hormone replacement therapy. Accounting Associate/Model: [employer] A (S/N [id number]) Facility LSC value of 0.022 for the [...] Electronically signed by Alyson Pandey M.D. TW: KRYSTAL Report ID: [id number] Reading Location: [id number] Procedure Note Alyson Pandey MD - 06/06/2024 EXAM DESCRIPTION: DEXA AXIAL SKELETON BONE DENSITY 1 OR MORE SITES REASON FOR STUDY: 78 y/o year old F with given history of:Postmenopausal status. History taking vitamin-D, calcium and hormone replacementtherapy. Accounting Associate/Model: [employer] A (S/N [id number]) Facility LSC value of 0.022 for the [...] Electronically signed by Alyson Pandey M.D. TW: KRYSTAL Report ID: [id number] Reading Location: [place] [address] Tess Christiansen MD IMSheila DXA PROCEDURES Final Result from Last 3 Months Insurance [facility] MEDICARE ADVANTAGE [facility] MEDICARE ADVANTAGE Care Teams Treatment Specialist Relationship Specialty Start Date End Date Camryn Noe MD PCP - General Family Medicine 01/10/20 Tess Christiansen MD [address] [facility] [address] [place] [address] Referring Physician Gynecology 03/22/23
--- OUTSIDE RECORDS SUMMARY | 2024-08-03 13:04 | XMS_ITS | Clinical Summary ---
Author Organization [facility] Address [address] [place] [id number] Care Team Providers Care Kitchenwhere Maker Name Role Phone Camryn Noe MD Primary Care Provider Tess Christiansen MD Unavailable [phone] Allergies Active Allergy Reactions Criticality Noted Date [...] mg tablet 07/03/2014Ibuprofen, po solid 400 mg [id number] PRN painCurrent Medication 07/04/19 15 Active cetirizine (ZyrTEC) 10 mg tablet 07/03/2014Zyrtec, po solid 10 mg TabletPOdailyCurrent Medication 07/04/19 15 Active cyanocobalami n/folic acid (vitamin B02-fffpq acid) 500-400 mcg tablet 07/03/2014Vitamin b85-cfwem acid, po solid 500-400mcg TabletPOdailyCurrent Medication 07/04/19 [...] Type Department Care Team Description 07/28/[address] [address] Wanda Buitrago RN Medical Records Request 06/02/2024 8:48 AM HAND NAILER - 06/02/2024 11:59 PM HAND NAILER Hospital Encounter [facility] Medical Office Bldg 1 Breast [facility] [address] [place] [address] Postmenopause Discharge Disposition: Discharge to home or [...] on file Legal Sex Female 7:32 PM HAND NAILER Gender Identity Not on file Sexual Orientation [...] 1996 Well Visit 65+ 06/30/2011 Influenza Vaccine (Season Ended) 2024 01/16/2020, 02/04/2019, 02/09/2017, Additional history exists Osteoporosis Screening-Bone Density Scan 06/02/2026 06/02/2024 DTaP/Tdap/Td Vaccine (2 - Td or Tdap) 05/20/2027 05/20/2017 Pneumococcal vaccine 65+ Completed 02/03/2018, 02/18 Procedures Procedure Name Priority Date/Time Associated Diagnosis Comments DEXA AXIAL SKELETON BONE DENSITY 1 OR MORE SITES Schedule Routine, Read Routine (OP Routine) 06/02/2024 9:13 AM HAND NAILER Postmenopause from Last 3 Months Results * Dexa Axial Skeleton Bone Density 1 or 2 Site (06/02/2024 9:13 AM HAND NAILER) Anatomical Region Laterality Modality Body N/A Mammography 06/06/2024 8:32 AM HAND NAILER Narrative 06/06/2024 8:33 AM HAND NAILER EXAM DESCRIPTION: DEXA AXIAL SKELETON BONE DENSITY 1 OR MORE SITES REASON FOR STUDY: 78 y/o year old F with given history of: Postmenopausal status. History taking vitamin-D, calcium and hormone replacement therapy. Director Market Research/Model: [employer] A (S/N [id number]) Facility LSC value of 0.022 for the [...] Alyson Pandey M.D. TW: TW Report ID: [id number] Reading Location: [id number] Procedure Note Alyson Pandey MD - 06/06/2024 EXAM DESCRIPTION: DEXA AXIAL SKELETON BONE DENSITY 1 OR MORE SITES REASON FOR STUDY: 78 y/o year old F with given history of:Postmenopausal status. History taking vitamin-D, calcium and hormone replacementtherapy. Director Market Research/Model: [employer] A (S/N [id number]) Facility LSC value of 0.022 for the [...] Alyson Pandey M.D. TW: TW Report ID: [id number] Reading Location: [place] [address] Tess Christiansen MD IMG DXA PROCEDURES Final Result from Last 3 Months Insurance MEDICARE ADVANTAGE [employer] MEDICARE ADVANTAGE Care Teams Kitchenwhere Maker Relationship Specialty Start Date End Date Camryn Noe MD PCP - General Family Medicine 01/10/20 Tess Christiansen MD [address] [place], [place] [id number] Referring Physician Gynecology 03/22/23
--- OUTSIDE RECORDS SUMMARY | 2024-08-03 13:04 | XMS_ITS | Clinical Summary ---
Author Organization [facility] Address [address] [facility] Attn: Epic Prelude ADT LILLIAN ALVA [address] Care Team Providers Care Coil Tester Name Role Phone Unavailable Primary Care Provider [...]
== END 2024-08-03 12:47 | disposition home or self-care (01) ==
PROVIDERS: PCP Family Medicine; Visit Provider Physician Assistant Medical
DX: N28.1 Cyst of kidney, acquired (principal)
CPT/HCPCS: 76775

== ENCOUNTER 2024-10-09 01:03 | Day surgery (SDC) | payer MEDICARE, SELFPAY ==
[2024-09-29 14:58] VITALS: BMI 18.8
--- NOTE | 2024-09-29 15:06 | PC.NURSE ---
Report to the Outpatient Waiting Room, entrance under the green pavilion located off [facility], at time __0815am on date _10/09/24 . Planned Procedure Time: __10:15am .? Time changes happen often and if your time is changed the preop area will call you the afternoon before. - You and your visitor will be asked to self-screen and do not enter if you have any COVID symptoms. Please call surgeon if you need to reschedule. - A mask is optional within the hospital at this time. Patients may have clear liquids (water, carbonated beverages, clear teas, apple juice) until 3 hours prior to surgery with a maximum of 20 ounces. - No food from midnight until time of surgery and no smoking, or chewing tobacco (or any form of nicotine). No chewing gum, candy or mints.( 0715am) Take only the following medications with a SIP of water on the morning of surgery: Tylenol if needed DO NOT STOP ANY OF YOUR OTHER PRESCRIPTION MEDICATIONS PRIOR TO SURGERY EXCEPT THE FOLLOWING Hold all vitamins and supplements for 3 days per anesthesiologist. Date to take last dose 10/05/24 Medications to discontinue per physician NONE Date to take last dose NONE Please no make-up, nail somali, hairspray, perfume, deodorant, or body powder the day of surgery.? No jewelry (including any body piercings) or valuables the day of surgery, leave them at home.? Please take a shower or bath the night before, or the morning of, surgery with an antibacterial soap.? Wear comfortable, loose fitting clothing.? - Jewelry must be removed prior to entering the operating room.? Rings and piercings that are not removed may be cut off. - The hospital will not accept responsibility for valuables.? - Please leave all valuables, including medications, at home the day of surgery. If you are going home after surgery, a licensed local [place] truck driver must drive you home.? - NO public transportation without another adult if you receive anesthesia. - We recommend that an adult stay with you for 24 hours following discharge. - We also recommend that you do not drive, make important decision, drink alcoholic beverages, or take any drugs that were not prescribed by your health care provider for at least 24 hours after your discharge time. Follow any additional instructions given to you from your surgeon. Telephone instructions given to __Patient and asked if any additional questions and then verbalized understanding. Patient advised to call surgeon office or pre surgery nurse liaison [phone] if any additional questions.
--- NOTE | 2024-10-09 08:02 | WPDHPUPDATE1 ---
History and Physical Update Update Date/Time: 10/09/24 08:02 History and Physical has been reviewed, including an updated exam of the patient. There are NO changes in the patient's condition. Risks, benefits, and alternatives have been discussed and questions answered. Patient agrees to proceed with procedure.
--- NOTE | 2024-10-09 08:02 | PM.HPGS ---
History of Present Illness History of Present Illness Consent: Risks, benefits, and alternatives have been discussed and questions answered. Patient agrees to proceed with procedure. Chief complaint: post menopausal bleeding Narrative: Roselia Sarmiento is a 79 year old female with postmenopausal bleeding. Options were discussed with the patient and she plans to proceed with D&C hysteroscopy. Risks of infection, bleeding, perforation, and possible pathology are reviewed. Patient voices understanding and agrees to proceed. Patient with a history simple hyperplasia without atypia in 2004. [facility] Past Medical History Medical History (Updated 10/07/24 @ 13:20 by Ramiro Jj DO) PONV (postoperative nausea and vomiting) (normal spontaneous vaginal delivery) Chronic rhinitis Migraine without aura and without status migrainosus, not intractable Primary osteoarthritis of both knees Vitamin B12 deficiency Vitamin D deficiency Surgical History Surgical History (Updated 10/09/24 @ 08:05 by Tess Christiansen MD) History of breast biopsy 2019 benign History of bilateral breast reduction surgery and breast lift 2010 History of laparoscopy 2004 History of hysteroscopy 2004, 2005, 2013, 2022; 2004 showed simple hyperplasia without atypia 2005 and 2013 were benign History of bilateral tubal ligation Family History Family History Other Diabetes mellitus Family history of cardiovascular disease Social History Social History Smoking status: Never smoker Second hand tobacco smoke exposure: No Alcohol intake: never Substance use: never Substance use type: does not use Lack of Transportation: No Lack of Food: Never True Current Housing: I Have Housing Concerned About Future Housing: No Difficulty Paying Gas/Electric Bills: No Difficulty Paying for Meds: No Currently Unemployed: No Education: Trade/Vocational Certificate Difficulty w/ Childcare or Family Care: No Living arrangements: alone Gender identity (if verbalized by the patient): Female Spiritual care concerns: No Agree to blood products: Yes Meds Home Medications and Allergies Home Medications ?Medication ?Instructions ?Recorded ?Confirmed ?Type calcium 500 mg (as 1 tablet PO DAILY 03/27/19 09/29/24 History carbonate)-vitamin D3 5 mcg (200 unit) tablet (Calcium 500 + D) estradiol 0.5 mg tablet 0.5 mg PO DAILY 03/27/19 09/29/24 History medroxyprogesterone 2.5 mg tablet 5 mg PO DAILY 03/27/19 09/29/24 History (Provera) loratadine 10 mg tablet 10 mg PO DAILY 01/15/21 09/29/24 History acetaminophen 650 mg 650 mg PO .qd-bid PRN Pain 01/29/22 09/29/24 History tablet,extended release (Tylenol 8 Hour) cyanocobalamin (vitamin B-12) 1,000 mcg IM MONTHLY #1 mL 11/17/23 09/29/24 Rx 1,000 mcg/mL injection solution meclizine 25 mg tablet 25 mg PO TID PRN dizziness #90 tabs 11/17/23 09/29/24 Rx prochlorperazine maleate 10 mg 10 mg PO Q8H PRN nausea and 11/17/23 09/29/24 Rx tablet (Compazine) vomiting #30 tabs ergocalciferol (vitamin D2) 1,250 1,250 mcg PO WEEKLY #12 caps 07/23/24 09/29/24 Rx mcg (50,000 unit) capsule (Vitamin D2) montelukast 10 mg tablet 10 mg PO QHS #90 tabs 07/23/24 09/29/24 Rx (Singulair) Allergies Allergy/AdvReac Type Severity Reaction Status Date / Time Penicillins Allergy Unknown Hives Verified 09/29/24 14:52 cortisone AdvReac Severe facial Verified 09/29/24 14:52 flushing furosemide AdvReac Mild Pt just Verified 09/29/24 14:52 felt off Exam Const: General: healthy appearing and alert Orientation/consciousness: patient oriented x3 Resp: Effort & Inspection: normal respiratory effort : External Female Exam: normal external appearance Speculum Exam - Vagina: vaginal bleeding Speculum Exam - Cervix: normal appearance of the cervix Bimanual exam- vagina & uterus: uterine size normal and consistency normal Bimanual Exam- Adnexa, other: normal adnexae and No adnexal tenderness Neuro: General: patient oriented x3 Assessment and Plan Assessment and plan (1) Post-menopausal bleeding: Code(s): N95.0 - Postmenopausal bleeding Status: Acute Assessment and Plan: Plan to proceed with D&C hysteroscopy
--- NOTE | 2024-10-09 09:04 | WPDANESEPPF ---
Anes - Initial Pre Proc Eval Procedure: Operation Date: 10/09/24 10:15 Proposed Procedures p Hysteroscopy Dilation and Curettage - Tess Christiansen MD Date/Time: 10/09/24 09:04 Surgeon: Tess Christiansen MD Pre Op Diagnosis: post menopausal bleeding Patient Data Age: 79 Gender: F Height: 1.63 m Weight: 49.9 kg Allergies Allergy/AdvReac Type Severity Reaction Status Date / Time Penicillins Allergy Unknown Hives Verified 09/29/24 14:52 cortisone AdvReac Severe facial Verified 09/29/24 14:52 flushing furosemide AdvReac Mild Pt just Verified 09/29/24 14:52 felt off Home Medications ?Medication ?Instructions ?Recorded ?Confirmed ?Type calcium 500 mg (as 1 tablet PO DAILY 03/27/19 09/29/24 History carbonate)-vitamin D3 5 mcg (200 unit) tablet (Calcium 500 + D) estradiol 0.5 mg tablet 0.5 mg PO DAILY 03/27/19 09/29/24 History medroxyprogesterone 2.5 mg tablet 5 mg PO DAILY 03/27/19 09/29/24 History (Provera) loratadine 10 mg tablet 10 mg PO DAILY 01/15/21 09/29/24 History acetaminophen 650 mg 650 mg PO .qd-bid PRN Pain 01/29/22 09/29/24 History tablet,extended release (Tylenol 8 Hour) cyanocobalamin (vitamin B-12) 1,000 mcg IM MONTHLY #1 mL 11/17/23 09/29/24 Rx 1,000 mcg/mL injection solution meclizine 25 mg tablet 25 mg PO TID PRN dizziness #90 tabs 11/17/23 09/29/24 Rx prochlorperazine maleate 10 mg 10 mg PO Q8H PRN nausea and 11/17/23 09/29/24 Rx tablet (Compazine) vomiting #30 tabs ergocalciferol (vitamin D2) 1,250 1,250 mcg PO WEEKLY #12 caps 07/23/24 09/29/24 Rx mcg (50,000 unit) capsule (Vitamin D2) montelukast 10 mg tablet 10 mg PO QHS #90 tabs 07/23/24 09/29/24 Rx (Singulair) Patient hx anesthesia problems: post op nausea/vomiting (even with colonoscopies) Family hx anesthesia problems: none Results Review: All pre-operative results and documents have been reviewed as part of the pre-operative evaluation. [facility] Past Medical History Medical History (Updated 10/07/24 @ 13:20 by Ramiro Jj DO) PONV (postoperative nausea and vomiting) (normal spontaneous vaginal delivery) Chronic rhinitis Migraine without aura and without status migrainosus, not intractable Primary osteoarthritis of both knees Vitamin B12 deficiency Vitamin D deficiency Surgical History Surgical History (Updated 10/09/24 @ 08:05 by Tess Christiansen MD) History of breast biopsy 2019 benign History of bilateral breast reduction surgery and breast lift 2010 History of laparoscopy 2004 History of hysteroscopy 2004, 2005, 2013, 2022; 2004 showed simple hyperplasia without atypia 2005 and 2013 were benign History of bilateral tubal ligation Family History Family History Other Diabetes mellitus Family history of cardiovascular disease Social History Social History Smoking status: Never smoker Second hand tobacco smoke exposure: No Alcohol intake: never Substance use: never Substance use type: does not use Lack of Transportation: No Lack of Food: Never True Current Housing: I Have Housing Concerned About Future Housing: No Difficulty Paying Gas/Electric Bills: No Difficulty Paying for Meds: No Currently Unemployed: No Education: Trade/Vocational Certificate Difficulty w/ Childcare or Family Care: No Living arrangements: alone Gender identity (if verbalized by the patient): Female Spiritual care concerns: No Agree to blood products: Yes Anes - Eval Final PreProcedure Day of Procedure 10/09/24 09:04 Patient weight: normal Heart: regular rate and rhythm Lungs: clear to auscultation and normal air movement Airway: Mallampati scale class II Neurological: alert and oriented Last oral intake: >/= 8 hours ASA classification: II Emergent: no Anesthetic plan: proceed Anesthesia type and monitoring: general GIVS and standard monitoring Results Review: All pre-operative results and documents have been reviewed as part of the pre-operative evaluation. Informed Consent: The patient's anesthetic plan and its attendant risks and benefits were discussed with the patient/family/POA. Questions were solicited and answers provided to the satisfaction of the patient/family/POA.
[2024-10-09 09:15] VITALS: BP 183/78; PULSE 84; RESP 14; TEMP 36.8; O2SAT 100
[2024-10-09] MEDS: LACTATED RINGERS 1,000 ML 30 ML IV CONT (09:15)
--- NOTE | 2024-10-09 09:53 | S_PTH ---
PATIENT: Roselia Sarmiento LOC: [facility] U#:[id number] AGE/SX: 79/F ROOM: RE10/09/[address]: Tess Christiansen MD : 1945 BED: DIS: 10/09/2024 SPEC #: [id number] RECD: 10/09/24 10:53 STATUS: QUIRINO REMaggi #: [id number] ROBLES: 10/09/24 09:[address]: Tess Christiansen DEPT: [facility] Surgical RECD BY: Akila Pham ENTERED: 10/09/24 10:53 SP TYPE: Surgical OTHR DR: Camryn Noe, Tissues: A - Endometrial Curettings Procedures: Hematoxylin and Eosin Stain Gross and Microscopic Level 4
[2024-10-09] MEDS: KETOROLAC 15 MG/ML VIAL (*BKC) IV PUSH (09:55)
--- NOTE | 2024-10-09 09:57 | W.PM.PROC2 ---
Procedure Note - Detailed Date of Procedure 10/09/24 Pre-op Diagnosis post menopausal bleeding Post-op Diagnosis Same Procedure Performed D&C hysteroscopy Surgeon Tess Christiansen MD Anesthesia MAC Findings Uterus sounds to 8cm and appears grossly severely atrophic Description of Procedure The patient was taken to the operating room and placed under anesthesia in the dorsal lithotomy position. [place] speculum was placed in the vagina and the cervix was grasped on the anterior lip with a tenaculum. The uterus is sounded to 8cm. The diagnostic hysteroscope was placed and severe atrophy is noted. No lesions are noted. The hysteroscope was removed and the sharp curette but not pass the internal os. The cervix was serially dilated to a 5 Hegar. A sharp curette was then used to curette the endometrium until a good uterine cry was noted in all areas. Minimal material was obtained consistent with the atrophic appearance. All instruments are removed. Sponge, needle, and instrument counts are correct per the OR staff. Patient was awakened from anesthesia and taken to recovery in stable condition. Estimated Blood Loss 5 Drains No Packing No Pathology Yes (Endometrial curetting) Complications No immediate complications Condition Stable Disposition PACU
[2024-10-09 10:00] VITALS: BP 170/70; PULSE 82; RESP 14; O2SAT 100
[2024-10-09 10:30] VITALS: BP 165/76; PULSE 77; O2SAT 100
[2024-10-09 11:00] VITALS: BP 148/70; PULSE 91
== END 2024-10-09 11:15 | disposition home or self-care (01) ==
PROVIDERS: PCP Family Medicine; Visit Provider Obstetrics & Gynecology Gynecology
PROC: 0U5B8ZZ Destruction of Endometrium, Via Natural or Artificial Opening Endoscopic (ICD-10-PCS; CPT 58563; principal; 2024-10-09 10:15)
DX: N95.0 Postmenopausal bleeding (principal); N85.8 Other specified noninflammatory disorders of uterus
CPT/HCPCS: 58558; 88305; J1100; J1885; J2003; J2405; J2704; J3010; J7120

== ENCOUNTER 2024-11-08 10:43 | Outpatient (CLI) | payer OTHER, SELFPAY ==
--- OUTSIDE RECORDS SUMMARY | 2024-11-08 10:54 | XMS_ITS | Clinical Summary ---
Author Organization [facility] Address [address] [place] [address] Care Team Providers Care Recreation Adviser Name Role Phone Camryn Noe MD Primary Care Provider [phone] Tess Christiansen MD Unavailable [phone] Allergies Active Allergy Reactions Criticality Noted Date [...] mg tablet 07/03/2014Ibuprofen, po solid 400 mg [id number] PRN painCurrent Medication 07/04/19 15 Active cetirizine (ZyrTEC) 10 mg tablet 07/03/2014Zyrtec, po solid 10 mg TabletPOdailyCurrent Medication 07/04/19 15 Active cyanocobalami n/folic acid (vitamin Q84-ageln acid) 500-400 mcg tablet 07/03/2014Vitamin r03-vlkzo acid, po solid 500-400mcg TabletPOdailyCurrent Medication 07/04/19 [...] right breast 02/01/2020 Breast mass, right 02/01/2020 Surgical History Surgery Date Site/Laterality Comments BREAST BIOPSY 02/14/2020 Right Family History Medical History Relation Name Comments Breast cancer Daughter Relation Name Status Comments Daughter Social History Tobacco Use Types Packs/Day Years Used Date Smoking Tobacco: Never Smokeless Tobacco: Never Comments No Sex and Gender Information Value Date Recorded Sex Assigned at Not on file Legal 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 Gender Identity Not on file Sexual Orientation Not on file Obstetrics History Last Filed Vital Signs Vital Sign Reading Time Taken Comments Blood Pressure - - Pulse - - Temperature - - Respiratory Rate - - Oxygen Saturation - - Inhaled Oxygen Concentration - - Weight 49.9 kg (110 lb 0.2 oz) 10/26/2023 10:32 AM CDT Height 162.6 cm (5' 4.02) 10/26/2023 10:32 AM C DT Body Mass Index 18.87 10/26/2023 10:32 AM CDT Plan of Treatment Health Maintenance Due Date Last Done Comments Depression Screening 1945 Fall Risk Assessment 1945 Hepatitis C Screening 1945 Hepatitis B Screening 1964 Zoster Vaccine (1 of 2) 1996 Well Visit 65+ 06/30/2011 Influenza Vaccine (#1) 2024 0, 02/04/2019, 02/09/2017, Additional history exists Osteoporosis Screening-Bone Density Scan 06/02/2026 06/02/2024 DTaP/Tdap/Td Vaccine (2 - Td or Tdap) 05/20/2027 05/20/2017 Pneumococcal vaccine 65+ Completed 02/03/2018, 02/18 Procedures Procedure Name Priority Date/Time Associated Diagnosis Comments DEXA AXIAL SKELETON BONE DENSITY 1 OR MORE SITES Schedule Routine, Read Routine (OP Routine) 06/02/2024 9:13 AM SALES STORE CHECKER Postmenopause from Last 3 Months or Most Recently Relevant to Health Maintenance Results * Dexa Axial Skeleton Bone Density 1 or 2 Site (06/02/2024 9:13 AM SALES STORE CHECKER) Anatomical Region Laterality Modality Body N/A Mammography 06/06/2024 8:32 AM SALES STORE CHECKER Narrative 06/06/2024 8:33 AM SALES STORE CHECKER EXAM DESCRIPTION: DEXA AXIAL SKELETON BONE DENSITY 1 OR MORE SITES REASON FOR STUDY: 78 y/o year old F with given history of: Postmenopausal status. History taking vitamin-D, calcium and hormone replacement therapy. Pbx Wire Chief/Model: psicofxp A (S/N [id number]) Facility LSC value of 0.022 for the [...] Alyson Pandey M.D. TW: TW Report ID: [id number] Reading Location: [id number] Procedure Note Alyson Pandey MD - 06/06/2024 EXAM DESCRIPTION: DEXA AXIAL SKELETON BONE DENSITY 1 OR MORE SITES REASON FOR STUDY: 78 y/o year old F with given history of:Postmenopausal status. History taking vitamin-D, calcium and hormone replacementtherapy. Pbx Wire Chief/Model: Hologic Lydia A (S/N [id number]) Facility LSC value of 0.022 for the [...] Alyson Pandey M.D. TW: TW Report ID: [id number] Reading Location: [place] [address] Tess Christiansen MD IM DXA PROCEDURES Final Result from Last 3 Months or Most Recently Relevant to Health Maintenance Insurance Care Teams Recreation Adviser Relationship Specialty Start Date End Date Camryn Noe MD PCP - General Family Medicine 01/10/20 Tess Christiansen MD [address] [place] [phone] Referring Physician Gynecology 03/22/23
--- OUTSIDE RECORDS SUMMARY | 2024-11-08 10:54 | XMS_ITS | Clinical Summary ---
Author Organization [facility] Address [address] [place] [address] Care Team Providers Care Carbon Sequestration Plant Operator Name Role Phone Unavailable Primary Care Provider Unavailabl e Social History Tobacco Use Types Packs/Day Years Used Date Smoking Tobacco: Never Assessed Comments Unknown Sex and Gender Information Value Date Recorded Sex Assigned at Not on file Legal Sex Female 9:15 AM UTILITY MECHANIC Gender Identity Not on file Sexual Orientation Not on file Plan of Treatment Health Maintenance Due Date Last Done Comments Hepatitis C Virus (HCV) Screening 1945 Zoster Immunization (1 of 2) 1996 Respiratory Syncytial Virus (RSV) Immunization (Adult) (1 - 1-dose 75+ series) 2021 SARS-COV-2 Immunization ( - season) 2023 Influenza Immunization (#1) 2024 09/2 12/2019, 02/04/2019, 02/09/2017, Additional history exists DTaP/Tdap/Td Immunization Discontinued 05/20/2017 TdaP Immunization Completed 05/20/2017 Pneumococcal Immunization (50+ years) Completed 02/03/2018, 03/13/2016 Pneumococcal Immunization Combined Discontinued 02/03/2018, 03/13/2016 Hepatitis B Immunization Aged Out No longer eligible based on patient's age to complete this topic Human Papillomavirus (HPV) Immunization Aged Out No longer eligible based on patient's age to complete this topic Meningococcal Immunization (ACWY) Aged Out No longer eligible based on patient's age to complete this topic Rotavirus Immunization Aged Out No lo nger eligible based on patient's age to complete this topic
--- OUTSIDE RECORDS SUMMARY | 2024-11-08 10:54 | XMS_ITS | Encounter Summary ---
Author Organization [facility] Healthcare Address [address] [place] [address] Care Team Providers Care Mechanic Insulator Name Role Phone Unavailable Primary Care Provider Unavailabl e Reason for Visit * Diagnostic Imaging (Routine) - Closed Specialty Diagnoses / Procedures Referred By George t Referred To Contact Procedures Breast Imaging Diagnostic Outside Reference Araceli Pires NP [address] [phone] [place] [address] Phone: tel: fax: Referral ID Status Reason Start Date Expiration Date Visits Re quested Visits Authorized [id number] Closed 04/05/2023 05/04/2024 1 1 Encounter Details Date Type Department Care Team (Late st Contact Info) Description 01/09/2020 Hospital Encounter [facility]iology [facility] [address] [place] [address] Social History Tobacco Use Types Packs/Day Years Used Date Smoking Tobacco: Never Smokeless Tobacco: Never Comments No Sex and Gender Information Value Date Recorded Sex Assigned at Not on file Legal Sex Female 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 There will be no report generated by a [facility] Radiologist. Narrative [facility]_MAMMO_[facility] - 04/05/2023 8:37 AM SOFTWARE DATABASE ARCHITECT EXAMINATION: Images For Reference Purposes Only us Araceli Pires NP IMG MAMMO PROCEDURES Final Result [facility]_MAMMO_[facility] documented in this encounter Visit Diagnoses Not on filedocumented in this encounter
--- OUTSIDE RECORDS SUMMARY | 2024-11-08 10:54 | XMS_ITS | Clinical Summary ---
Author Organization [facility] Address Formerly [facility] [place] [address] Care Team Providers Care Kerrick Kleaner Operator Name Role Phone Unavailable Primary Care [...] Td Vaccines ( 1 - Tdap) 1965 Pneumococcal Vaccine: 50+ Ye ars (1 of 1 - PCV) 1996 Zoster Vaccines (1 of 2) 1996 Dexa Scan (General) 06/30/2011 RSV Immunization or 60+ Years (1 [...]
--- OUTSIDE RECORDS SUMMARY | 2024-11-08 10:54 | XMS_ITS | Encounter Summary ---
Author Organization [facility] Healthcare Address [address] [place] [address] Care Team Providers Care Deputy Director Of Finance Name Role Phone Unavailable Primary Care Provider Unavailabl e Reason for Visit * Diagnostic Imaging (Routine) - Closed Specialty Diagnoses / Procedures Referred By George maldonado Referred To Contact Procedures Breast Imaging Screening Outside Reference Araceli Pires NP [address] [phone] [place] [address] Phone: tel: fax: Referral ID Status Reason Start Date Expiration Date Visits Re quested Visits Authorized [id number] Closed 04/05/2023 05/04/2024 1 1 Encounter Details Date Type Department Care Team (Late st Contact Info) Description 12/23/2018 Hospital Encounter [facility]iology [facility]) [address] [place] [address] Social History Tobacco Use Types Packs/Day Years Used Date Smoking Tobacco: Never Smokeless Tobacco: Never Comments No Sex and Gender Information Value Date Recorded Sex Assigned at Not on file Legal Sex Female 7:32 PM 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 PRINT 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 Gender Identity Not on file Sexual Orientation Not on file documented as of this encounter Plan of Treatment Not on file documented as of this encounter Procedures Procedure Name Priority Date/Time Associated Diagnosis Comments BREAST IMAGING MG SCREENING OUTSIDE REFERENCE Routine 12/23/2018 12:00 AM CDT documented in this encounter Results * Breast Imaging Screening Outside Reference (12/23/2018 12:00 AM CDT) Impressions RAD[facility]MO[facility] - 04/05/2023 8:32 AM AMMONIA PRINT OPERATOR These images are for Reference purposes only and have not been reviewed by [facility] Radiology. There will be no report generated by a [facility] Radiologist. Narrative RAD_MAMMO_[facility] - 04/05/2023 8:32 AM AMMONIA PRINT OPERATOR EXAMINATION: Images For Reference Purposes Only us Araceli Pires NP IMG MAMMO PROCEDURES Final Result [facility]_MAMMO_[facility] documented in this encounter Visit Diagnoses Not on filedocumented in this encounter
--- OUTSIDE RECORDS SUMMARY | 2024-11-08 10:54 | XMS_ITS | Encounter Summary ---
Author Organization [facility] Address [address] [place] [address] Care Team Providers Care Children'S Ministry Director Name Role Phone Camryn Noe MD Primary Care Provider [phone] Encounter Details Date Type Department Care Team (Late st Contact Info) Description 10/26/2024 Lab Requisition [facility] - DermPath Lab [address] [facility] [facility] [place] [address] Coleen George DO [address] [facility] [address] [place] [address] Social History Tobacco Use Types Packs/Day Years Used Date Smoking Tobacco: Never Assessed Comments Unknown Sex and Gender Information Value Date Recorded Sex Assigned at Not on file 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 Gender Identity Not on file Sexual Orientation Not on file documented as of this encounter Plan of Treatment Not on file documented as of this encounter Procedures Procedure Name Priority Date/Time Associated Diagnosis Comments DERMATOPATHOLOGY Routine 10/26/2024 10:5 2 AM CDT documented in this encounter Results * DERMATOPATHOLOGY (10/26/2024 10:52 AM CDT) Case Report Dermatopathology Report Case: [id number] Authorizing Provider: Coleen George DO Collected: 10/26/2024 10:52 AM Ordering Location: [facility] - Received: 10/27/2024 08:46 AM DermPath Lab Pathologist: Cheri Bishop MD Specimen: Skin, right inner thigh 2:20 PM CDT DERMATOPATHOLOGY LABORATORY Final Diagnosis Specimen A. SKIN, right inner thigh: PIGMENTED SEBORRHEIC KERATOSIS (L82.1) 2:20 PM CDT DERMATOPATHOLOGY LABORATORY at 1420 CDT Clinical History SK vs Pigmented NMSC vs MM 2:20 PM CDT DERMATOPATHOLOGY LABORATORY Gross Description Specimen A: Received is one formalin filled container labeled with the patient's name and designated right inner thigh. The specimen consists of a shave biopsy measuring 11x8x1 mm. Jar 0. 2:20 PM CDT DERMATOPATHOLOGY LABORATORY Microscopic Description Specimen A. SKIN, right inner thigh: Sections show an acanthotic lesion composed of relatively uniform keratinocytes. There is hyperkeratosis and pseudo horn cysts. Pigment is present in the keratinocytes composing this tumor. 2:20 PM CDT DERMATOPATHOLOGY LABORATORY Disclaimer An external and internal positive and negative controls are appropriate for the histochemical, immunohistochemical and immunofluorescence stain(s) in this case (if any), except where stated explicitly. The performance characteristics of the stain(s) cited in this report were developed and its performance characteristic determined by the Dermatopathology Laboratory at [facility], directed by Dr. Mikayla Flores. These tests need not be, and therefore are not, approved by the [place] Food and Drug Administration. The tests are used for clinical purposes. Billing Codes Specimen Charges Stain Charges 31966 1 2:20 PM CDT DERMATOPATHOLOGY LABORATORY Embedded Images 2:20 PM CDT DERMATOPATHOLOGY LABORATORY Pathology/Cytolo gy TISSUE SPECIMEN FROM SKIN / Unknown 10/26/2024 10:52 AM CDT 10/27/2024 8:46 AM CDT us Coleen George DO LAB - PATHOLOGY/CYTOLOGY ORDERABLES Final Result DERMATOPATHOLOGY LABORATORY [facility] - Department of Dermatology [address], [address] [phone] documented in this encounter Visit Diagnoses Not on filedocumented in this encounter Care Teams Children'S Ministry Director Relationship Specialty Start Date End Date Camryn Noe MD [address] [place] [address] PCP - General 2/3/09 documented as of this encounter
--- OUTSIDE RECORDS SUMMARY | 2024-11-08 10:54 | XMS_ITS | Encounter Summary ---
Author Organization [facility] Healthcare Address [address] [place] [address] Care Team Providers Care Store Grocery Merchandiser Name Role Phone Unavailable Primary Care Provider Unavailabl e Reason for Visit * Diagnostic Imaging (Routine) - Closed Specialty Diagnoses / Procedures Referred By George maldonado Referred To Contact Procedures Breast Imaging US Outside Reference Araceli Pires NP [address] [phone] [place] [address] Phone: tel: fax: Referral ID Status Reason Start Date Expiration Date Visits Re quested Visits Authorized [id number] Closed 04/05/2023 05/04/2024 1 1 Encounter Details Date Type Department Care Team (Late st Contact Info) Description 01/09/2020 12:05 AM CDT Hospital Encounter [facility] Radiology [facility] [address] [place] [address] Social History Tobacco Use Types Packs/Day Years Used Date Smoking Tobacco: Never Smokeless Tobacco: Never Comments No Sex and Gender Information Value Date Recorded Sex Assigned at Not on file 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 There will be no report generated by a [facility] Radiologist. Narrative RAD_MAMMO_[facility] - 04/05/2023 8:52 AM INTERNAL AUDIT CONSULTANT EXAMINATION: Images For Reference Purposes Only us Araceli Pires NP IMG MAMMO PROCEDURES Final Result [facility]_MAMMO_[facility] documented in this encounter Visit Diagnoses Not on filedocumented in this encounter
--- OUTSIDE RECORDS SUMMARY | 2024-11-08 10:54 | XMS_ITS | Referral Summary ---
Author Organization [facility] Address [address] [place] [address] Care Team Providers Care Sales Producer Name Role Phone Camryn Noe MD Primary Care Provider [phone] Tess Christiansen MD Unavailable [phone] Allergies Active Allergy Reactions Criticality Noted Date [...] mg tablet 07/03/2014Ibuprofen, po solid 400 mg [id number] PRN painCurrent Medication 07/04/19 15 Active cetirizine (ZyrTEC) 10 mg tablet 07/03/2014Zyrtec, po solid 10 mg TabletPOdailyCurrent Medication 07/04/19 15 Active cyanocobalami n/folic acid (vitamin D87-eimzh acid) 500-400 mcg tablet 07/03/2014Vitamin u43-dopjd acid, po solid 500-400mcg TabletPOdailyCurrent Medication 07/04/19 [...] on file 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 History taking vitamin-D, calcium and hormone replacement therapy. 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 TW: TW Report ID: [id number] Reading Location: [id number] Procedure Note Alyson Pandey MD - 06/06/2024 EXAM DESCRIPTION: DEXA AXIAL SKELETON BONE DENSITY 1 OR MORE SITES REASON FOR STUDY: 78 y/o year old F with given history of:Postmenopausal status. History taking vitamin-D, calcium and hormone replacementtherapy. Body Shop Mechanic/Model: Hologic Horizon A (S/N [id number]) Facility LSC value of 0.022 for the [...] Alyson Pandey M.D. TW: KRYSTAL Report ID: [id number] Reading Location: [place] [address] Tess Christiansen MD IMG DXA PROCEDURES Final Result from Last 3 Months or Most Recently Relevant to Health Maintenance Insurance [facility] MEDICARE ADVANTAGE [facility] Address: [address] [phone] [facility] MEDICARE ADVANTAGE [facility]IC[facility] Address: [address] [phone] Care Teams Sales Producer Relationship Specialty Start Date End Date Camryn Noe MD PCP - General Family Medicine 01/10/20 Tess Christiansen MD [address] [address] Referring Physician Gynecology 03/22/23
--- OUTSIDE RECORDS SUMMARY | 2024-11-08 10:54 | XMS_ITS | Clinical Summary ---
Author Organization [facility] Address [address] [facility] [place] [address] Care Team Providers Care Gold Layer Name Role Phone Camryn Noe MD Primary Care Provider [phone] Source Comments [facility],non-owned Affiliates and Associated Physician Practices is amultiple site organization consisting of ambulatory clinics and hospital sitesin [place], [place], [place] and [place]. This disclosure is being madepursuant to the Care Everywhere program and may not contain all information available regarding this patient. 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 Gender Identity Not on file Sexual Orientation Not on file Plan of Treatment Health Maintenance Due Date Last Done Comments BONE DENSITY TESTING 1945 HEPATITIS C SCREENING 06/24/1964 DTAP/TDAP/TD VACCINES (1 - Tdap) 1965 PNEUMOCOCCAL VACCINE 50+ (1 of 1 - PCV) 1996 ZOSTER VACCINE (1 of 2) 1996 Respiratory Syncytial Virus (RSV) Vaccine Pt: or over 60 yrs (1 - 1-dose 75+ series) 2021 COVID-19 VACCINE ( - 2023-2 5 season) 2023 DEPRESSION SCREENING 04/19/2024 MEDICARE AWV CALENDAR YEAR 2024 INFLUENZA VACCINE (#1) 2024 HEPATITIS B VACCINE Aged Out No longe r eligible based on patient's age to complete this topic HIB VACCINE Aged Out No longer eligi ble based on patient's age to complete this topic HPV VACCINE Aged Out No longer eligi ble based on patient's age to complete this topic MENINGOCOCCAL (Group B) VACC INE SHARED DECISION-MAKING Aged Out No longer eligibl e based on patient's age to complete this topic MENINGOCOCCAL GROUPS A/C/Y/W VACCINE Aged Out No longer eligible b ased on patient's age to complete this topic Procedures Procedure Name Priority Date/Time Associated Diagnosis Comments DERMATOPATHOLOGY Routine 10/26/2024 10:5 2 AM CDT from Last 3 Months Results * DERMATOPATHOLOGY (10/26/2024 10:52 AM CDT) Case Report Dermatopathology Report Case: [id number] Authorizing Provider: Coleen George DO Collected: 10/26/2024 10:52 AM Ordering Location: [facility] - Received: 10/27/2024 08:46 AM DermPath Lab Pathologist: Cheri Bsihop MD Specimen: Skin, right inner thigh 2:20 [...] determined by the Dermatopathology Laboratory at [facility], directed by Dr. Mikayla Flores. These tests need not be, and therefore are not, approved by the [place] Food and Drug Administration. The tests are used for clinical purposes. Billing Codes Specimen Charges Stain Charges 87293 1 5 2:20 PM CDT DERMATOPATHOLOGY LABORATORY Embedded Images 5 2:20 PM CDT DERMATOPATHOLOGY LABORATORY Pathology/Cytolo gy TISSUE SPECIMEN FROM SKIN / Unknown 10/26/2024 10:52 AM CDT 10/27/2024 8:46 AM CDT Coleen George DO LAB - PATHOLOGY/CYTOLOGY ORDERABLES Final Result DERMATOPATHOLOGY LABORATORY [facility] - Department of Dermatology [address] [phone] from Last 3 Months Insurance [facility] MEDICARE ADV SELF PAY NO INSURANCE Member Subscriber Plan / Payer (Ef fective for All Dates) Name:Roselia Martin Member ID:Not on file Relation to Subscriber:Not on file Name:ROSELIA MARTIN Subscriber ID:Not on file (Home) Address: [address] [place] [phone] Payer ID:Not on file Group ID:Not on file Type:Self Pay Address: [facility] MANAGED MEDICARE ADV Care Teams Gold Layer Relationship Specialty Start Date End Date Camryn Noe MD [address] [place] [address] PCP - General 05/22/08
--- OUTSIDE RECORDS SUMMARY | 2024-11-08 10:54 | XMS_ITS | Encounter Summary ---
Author Organization [facility] Healthcare Address [address] [place] [address] Care Team Providers Care Test Department Helper Name Role Phone Unavailable Primary Care Provider Unavailabl e Reason for Visit * Diagnostic Imaging (Routine) - Closed Specialty Diagnoses / Procedures Referred By George maldonado Referred To Contact Procedures Breast Imaging Screening Outside Reference Araceli Pires NP [address] [phone] [place] [address] Phone: tel: fax: Referral ID Status Reason Start Date Expiration Date Visits Re quested Visits Authorized [id number] Closed 04/05/2023 05/04/2024 1 1 Encounter Details Date Type Department Care Team (Late st Contact Info) Description 12/28/2019 Hospital Encounter [facility] [address] [place] [address] Social History Tobacco Use Types Packs/Day Years Used Date Smoking Tobacco: Never Smokeless Tobacco: Never Comments No Sex and Gender Information Value Date Recorded Sex Assigned at Not on file 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 There will be no report generated by a [facility] Radiologist. Narrative RAD_MAMMO_[facility] - 04/05/2023 9:59 AM MILLING OPERATOR EXAMINATION: Images For Reference Purposes Only us Araceli Pires NP IMG MAMMO PROCEDURES Final Result RAD_MAMMO_[facility] documented in this encounter Visit Diagnoses Not on filedocumented in this encounter
--- OUTSIDE RECORDS SUMMARY | 2024-11-08 10:55 | XMS_ITS | Data Portability ---
Author Organization [place] [employer], Main Office Address [address] [place] [address] Care Team Providers Care Counter Sales Person Name Role Phone RIGOBERTO REILLY Primary Care Provider [phone] RIGOBERTO REILLY Referring Provider CECILIA ANTONIO Continuous Improvement Lead SHAJI WANG Continuous Improvement Lead Assessment Encounter Date Assessment Date Assessment LastModified by Organization Details LastModified Time 11/24/2023 11/24/2023 78-year-old female presents for evaluation of a new problem with her left foot. She reports pain over the 2nd metatarsal when she is walking, this worse with prolonged standing and walking and periods of activity. She is about to return to school next week and wants to make sure there is nothing going on. She reports her knee has started to bother her again, but it is not serious enough that it limits her. She got a cortisone injection at her last visit which was quite helpful She has tenderness palpation over the 2nd metatarsal head. She does have a bump in the area which could be a wart or inclusion cyst. No tenderness over the webspace. She has full range of motion of the ankle and toes. Sensation intact to light touch throughout. X-rays of the foot were obtained and reviewed, demonstrating 2nd metatarsal longer than the 1st For her transfer metatarsalgia, I recommend the use of a well-padded insert for the shoe. She may continue to be activities as tolerated. We discussed that if she continues have symptoms, we can give her referral to Dr. Baron our md allergy immunology. With regards to her knee, if the knee is not bad enough, we can hold off on the injections do it either future date if it does become worse. We discussed that we would typically do prophylactic injections if she is still feeling okay. She will follow up as needed. Not available 11/24/2023 11:23:37 02/16/2024 02/16/2024 78-year-old female presents for follow-up of her left knee. She previously had an injection on 07/16/2023, which worked well but has worn off since then. She has also been taking Tylenol. She currently rates the pain as 5/10. She is here for a repeat injection. He has range of motion 0-130 with crepitus. Tenderness over the medial joint line and also over the patella. Neurovascular intact. X-rays of the left knee were reviewed, demonstrating degenerative changes similar previously We proceeded with the cortisone injection. She tolerated that well. She may follow-up as needed for repeat injections of her knee every few months. Not available 02/23/2024 09:52:41 05/10/2024 05/10/2024 78-year-old female presents for follow-up of her left knee osteoarthritis. She previously had an injection in January, which worked well but has recently worn off. She has also been taking Tylenol. She currently rates the pain as 5/10. She is here for a repeat injection. He has range of motion 0-130 with crepitus. Tenderness over the medial joint line and also over the patella. Neurovascular intact. We proceeded with the cortisone injection. She tolerated that well. She may follow-up as needed for repeat injections of her knee every 3 months. She is interested in gel injections, as the cortisone has been wearing off sooner each time. We discussed that if she would like to proceed with that next time she can call and we will get pre-approval. She is in agreement with this plan. Not available 05/10/2024 14:14:01 08/04/2024 08/04/2024 78-year-old female presents for follow-up of her left knee osteoarthritis. She previously had an injection in April, which worked well but has recently worn off. She has also been taking Tylenol. She currently rates the pain as 1/10. She is here for a repeat injection. She states she is starting to have pain in the right knee and is interested in starting injections in that one. She is also interested in gel injections. She has range of motion 0-130 with crepitus. Tenderness over the medial joint line and also over the patella. Neurovascular intact. We proceeded with the cortisone injection. She tolerated that well. She may follow-up as needed for repeat injections of her knee every 3 months. She is interested in gel injections, as the cortisone has been wearing off sooner each time. We discussed that if she would like to proceed with that next time she can call and we will get pre-approval. We will also work up her right knee at that time. She is in agreement with this plan. Not available 08/04/2024 10:30:35 09/20/2024 09/20/2024 79-year-old patient presents today for a new issue of right arm pain and weakness after an injury at work in December. She states that a large child jumped onto her to hug her and knocked her down. She was pinned against the desk and believed that her arm was broken but was able to move it afterwards. She states after the injury she had spasming in the arm that would cause her fingers to claw and she would have to pull them straight. She also has numbness in her fingers and a weakened cash person strength. She has pain in her shoulder and elbow with movement. The spasming and pain has gotten better, her main complaint today is numbness and weakness in her hand as well as burning pain in the elbow. For treatment she has tried Tylenol as needed. Imaging: Xrays reviewed of the left shoulder show no acute bony abnormality or fracture. Physical exam: No pain with shoulder palpitation or ROM. No pain with elbow ROM. No pain with wrist ROM. Weakened cash person strength in right compared to left. Patient states decreased sensation to light touch in right fingers compared to left. Postive phalens, negative tinels. Negative tinels at elbow. She is worried that there is nerve damage in the arm as her strength and sensation has continued to decline since the injury in December. We will order an EMG of the right arm to assess this. We will see her back once she has results. She is in agreement with this plan. Not available 09/22/2024 10:43:48 Plan of Treatment Reminders Order Date Submit Date Provider Last Modified By Organization Details Last Modified Time Details Appointments None recorded. Lab None recorded. Referral None recorded. Procedures nerve conduction study/EMG, upper extremity (PROC) - Please contact pt to schedule apt. 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 Filtering Machine Tender Filtering Machine Tender 2024 025 [facility] (Cardiology & Emg), [address], [place], [address], 5 10:25:20 injection/ aspiration joint/burs a (PROC) 2024 025 [email or web address] 1 In-Office Order, Internal Use Only DO Not Attach Compendium DO Not Attach Compendium, Do Not Delete/merge, [id number] 5 09:45:06 injection/ aspiration joint/burs a (PROC) 2024 025 [email or web address] In-Office Order, Internal Use Only DO Not Attach Compendium DO Not Attach Compendium, Do Not Delete/merge, [id number] 5 14:00:13 injection/ aspiration joint/burs a (PROC) 2023 024 [email or web address] In-Office Order, Internal Use Only DO Not Attach Compendium DO Not Attach Compendium, Do Not Delete/merge, [id number] 4 17:07:46 Surgeries None recorded. Imaging XR, shoulder, 2 or more view 2024 025 [email or web address] [facility] [place], [address], [place], [address], 5 17:40:53 XR, knee 2023 024 [email or web address] [facility] [place], [address], [place], [address], 4 08:29:21 XR, foot 2023 024 [email or web address] [place], [facility] [address], [place], [address], 4 16:47:48 Medication Orders bupivacain e HCl 0.5 % (5 mg/mL) injection solution [address]/Pharmacy [facility]2510, [address] [place] [address], [address], 5 10:39:53 Kenalog 10 mg/mL suspension for injection [address]/[facility]2510, [address] [place] [address], [address], 5 10:39:53 bupivacain e HCl 0.5 % (5 mg/mL) injection solution [address]/Pharmacy #2510, [address] [place] [address], [address], 5 20:27:32 Kenalog 10 mg/mL suspension for injection [address]/Pharmacy [facility]25[facility], [address] [place] [address], [address], 5 20:27:32 bupivacain e HCl 0.5 % (5 mg/mL) injection solution [address]/Pharmacy [facility]25[facility], [address] [place] [address], [address], 4 17:07:46 Kenalog 10 mg/mL suspension for injection [address]/Pharmacy [facility]25[facility], [address] [place] [address], [address], 4 17:07:46 Patient TargetsNo targets recorded. Patient Instructions Encounter Date Encounter Id Patient Instructions Last Modified By Organization Details Last Modified Time 08/04/2024 [id number] viscosupplementa tion treatment* - L knee [email or web address] Not available 09/14/2024 13:06:34 Reason for Referral None Reported. Results Created Date Observation Date Name Description Value Unit Range Abnormal Flag Note LastModifiedBy Organization Detail LastModifiedTime 11/24/19 24 XR, foot No observ ation record ed. [email or web address] [facility] [place] [address], [place], [address], 11/24/2023 10:56:23 02/16/20 24 XR, knee No observ ation record ed. [email or web address] [facility] [place] [address], [place], [address], 02/16/2024 15:04:30 09/21/19 25 XR, shoul yara, 2 or more view No observ ation record ed. [email or web address] [facility] [place] [address], [place], [address], 09/20/2024 14:56:14 Result Notes None recorded. Problems Name Problem SNOMED Code Status Onset Date Resolution Date Notes Provider Name and Address Organization Details Recorded Time Prepatella r bursitis 03189612 Active Not Available [facility] 3 13:30:22 Enthesopat hy of hip region 65647851 Active Not Available [facility] 3 13:30:22 Inflammato ry disorder of extremity 787442979 Active Not Available [facility] 3 13:30:22 Pain in limb 44815525 Active Not Available [facility] 3 13:30:23 Pain of left knee joint 8944755016452 07 Active 2022 Toya Laura ATC L null, [facility] [employer] 3 11:31:38 Pain in left foot 2643863414092 07 Active 2023 Niharika Stewart CNA null, [employer] [facility] [employer] 4 10:56:17 Metatarsal apryl of left foot 8989561214990 06 Active 2023 Jesus Lin MD [address], [address], [place], [address] , [facility] [employer] [facility] [employer] 4 11:24:57 Pain of right shoulder region Active 2024 Toya Laura, ATC L null, [place] [employer] [facility] [employer] 5 11:07:13 Problem Notes None recorded. Procedures Surgical History Date Name Laterality Status Provider Name and Address Organization Details Recorded Time 5 Ortho - Cortisone Injection completed Consuelo Leach NP [address], [address], [place], [address], [facility] [employer] [facility] [employer] 08/04/2024 10:31:36 5 Ortho - Cortisone Injection completed Consuelo Leach NP [address], [address], [place], [address], [employer] [facility] [employer] 05/10/2024 14:14:13 4 Ortho - Cortisone Injection completed Jesus Lin MD [address], [address], [place], [address], [employer] [facility] [employer] [facility] 02/16/2024 17:40:50 4 Ortho - Cortisone Injection completed Consuelo Leach NP [address], [address], [place], [address], [employer] [facility] [employer] 07/16/2023 11:02:18 3 Ortho - Cortisone Injection completed Jesus Lin MD [address], [address], [place], [address], [employer] [facility] [employer] [facility] 02/23/2023 22:39:48 3 Ortho - Cortisone Injection completed Jesus Lin MD [address], [address], [place], [address], [facility] [employer] [facility] [employer] 09/16/2022 12:44:31 3 Ortho - Cortisone Injection completed Jesus Lin MD [address], [address], [place], [address], [place] [facility] 07/01/2022 18:22:59 Tubal Ligation completed Niharika huber CNA [place] [employer] [facility] [employer] 11/24/2023 10:55:16 Imaging Results None recorded. Procedure Notes None recorded. Medical Equipment None Reported. Allergies Allergen ID Allergen Name Allergen Category Reaction Reaction Severity Criticality Documentation Date Start Date Code Code System Note Provider Name and Address Organization Details Recorded Time 45705 Product containin g penicilli n (product) medicatio n hives Not available Not available 06/17/2022 63519 8001 SNOMED Not Available [facility] 13:32:12 Medications Name Sig Start Date Stop Date Status Note LastModified by Organization Details LastModified Time cyclobenzap rine 10 mg tablet Take 1 tablet 3 times a day by oral route as needed. 07/12 completed Not Available Not Available Not Available terbinafine HCl 1 % topical cream APPLY TO AFFECTED AREA TWICE A DAY UNTIL SYMPTOMS RESOLVE active Not Available Not Available No t Available prednisone 10 mg tablet TAKE 5 TABS X 2 DAYS THEN 4TABS X 2 DAYS, 3 TABS X 2 DAYS, 2 TABS X 2 DAYS, 1 TAB X 2 DAYS THEN STOP active Not Available Not Available No t Available doxycycline hyclate 100 mg capsule 05/15 completed Not Available Not Available Not Available azithromyci n 250 mg tablet TAKE 2 TABLETS BY MOUTH TODAY, THEN TAKE 1 TABLET DAILY FOR 4 DAYS DIRECTED 08/15 completed Not Available Not Available Not Available medroxyprog esterone 2.5 mg tablet TK 1 T PO QD 05/15 completed Not Available Not Available Not Available metronidazo le 0.75 % (37.5 mg/5 gram) vaginal gel INSERT ONE APPLICATO RFUL VAGINALLY AT BEDTIME FOR 5 NIGHTS active Not Available Not Available No t Available bupivacaine HCl 0.5 % (5 mg/mL) injection solution Take 4 mg by injection route. 2024 active Not Available Not Available Not Avai lable medroxyprog esterone 5 mg tablet TAKE 1 TABLET BY MOUTH EVERY DAY active Not Available Not Available No t Available prochlorper azine maleate 10 mg tablet TAKE 1 TABLET BY MOUTH EVERY 8 HOURS NEEDED FOR NAUSEA/VO MITING active Not Available Not Available No t Available ciprofloxac in 500 mg tablet 05/15 completed Not Available Not Available Not Available estradiol 1 mg tablet 05/15 completed Not Available Not Available Not Available Kenalog 10 mg/mL suspension for injection Take 1 mg by injection route. 2024 active [facility]: [phone] Not Available Not Available Not Available meclizine 25 mg tablet TAKE 1 TABLET BY MOUTH THREE TIMES A DAY NEEDED FOR DIZZINESS active Not Available Not Available No t Available diazepam 2 mg tablet 05/15 completed Not Available Not Available Not Available prochlorper azine 25 mg rectal suppository 05/15 completed Not Available Not Available Not Available triamcinolo ne acetonide 40 mg/mL suspension for injection in office 2022 active Not Available Not Available Not Avai lable cyanocobala min (vit B-12) 1,000 mcg/mL injection solution INJECT 1ML INTRAMUSC ULARLY MONTHLY DIRECTED MONTHLY active Not Available Not Available No t Available neomycin-po lymyxin-dex ameth 3.5 mg/mL-10,00 0 unit/mL-0.1 % eye drops INSTILL 1 DROP INTO RIGHT EYE 4 TIMES A DAY FOR 7 DAYS FOR INFECTION 05/15 completed Not Available Not Available Not Available triamcinolo ne acetonide 0.1 % topical ointment APPLY THIN LAYER EXTERNALL Y TO THE AFFECTED AREA TWICE DAILY active Not Available Not Available No t Available lidocaine 5 % topical patch 05/15 completed Not Available Not Available Not Available BD Luer-Derrell Syringe 3 mL 25 gauge x 1 DIRECTED 07/12 completed Not Available Not Available Not Available montelukast 10 mg tablet TAKE 1 TABLET BY MOUTH ONCE DAILY AT BEDTIME active Not Available Not Available No t Available estradiol 0.5 mg tablet TAKE 1 TABLET BY MOUTH EVERY DAY active Not Available Not Available No t Available ergocalcife rol (vitamin D2) 1,250 mcg (50,000 unit) capsule TAKE 1 CAPSULE BY MOUTH ONCE WEEKLY active Not Available Not Available No t Available progesteron e micronized 100 mg capsule TAKE 1 CAPSULE BY MOUTH EVERY NIGHT 07/12 completed Not Available Not Available Not Available Marcaine (PF) 0.5 % (5 mg/mL) injection solution Take 4 mL by injection route. 2023 active Not Available Not Available Not Avai lable Boostrix Tdap 2.5 Lf unit-8 mcg-5 Lf/0.5 mL intramuscul ar syringe ADM 0.5ML IM UTD active Not Available Not Available No t Available BD Integra Syringe 3 mL 25 gauge x 1 DIRECTED active Not Available Not Available No t Available Synvisc-One 48 mg/6 mL intra-artic ular syringe Take 6 mg by intraarti cular route. 2024 active Not Available Not Available Not Avai lable ropivacaine (PF) 5 mg/mL (0.5 %) injection solution in office 07/12 completed [facility] [phone] Not Available Not Available Not Available Fluzone High-Dose 8869-4364 (PF) 180 mcg/0.5 mL intramuscul ar syringe ADM 0.5ML IM UTD active Not Available Not Available No t Available Paxlovid 150 mg-100 mg tablets in a dose pack (Moderate Renal Dose) TAKE DIRECTED ON PACKAGE 07/12 completed Not Available Not Available Not Available Vitals Date Recorded Body height Body mass index (BMI) Body weight Provider Name and Address Organization Details Last Updated DateTime 05/10/2024 162.56 cm 18.9 kg/m2 63982.16 g Niharika Stewart CNA [employer] 05/10/2024 13:57:44 Date Recorded Body height Body mass index (BMI) Body weight Pain severity - 0-10 verbal numeric rating [Score] - Reported Provider Name and Address Organization Details Last Updated DateTime 08/04/2024 162.56 cm 18.9 kg/m2 39905.16 g 1 ARMANDO Basilio [employer] 08/04/2024 09:32:04 Date Recorded Body height Body mass index (BMI) Body weight Provider Name and Address Organization Details Last Updated DateTime 09/20/2024 162.56 cm 18.9 kg/m2 64729.16 g Toya Laura ATC L [employer] 09/20/2024 11:06:49 Date Recorded Body height Body mass index (BMI) Body weight Provider Name and Address Organization Details Last Updated DateTime 11/24/2023 162.56 cm 18.9 kg/m2 39779.16 g Niharika Stewart CNA [employer] 11/24/2023 10:53:52 Date Recorded Body height Body mass index (BMI) Body weight Provider Name and Address Organization Details Last Updated DateTime 02/16/2024 162.56 cm 18.9 kg/m2 02381.16 abimbola Larson [facility] [employer] 02/16/2024 15:04:02 Social History None recorded. Functional Status Question Answer Note LastModified by Organizat ion Details LastModified Time What is your level of alcohol consumption? None [id number] Information not available 06/17/2022 Mental Status None recorded. Family History Relationship Description Onset Age of this Age Resolved Age Notes LastModified by Organization Details LastModified Time Brother Diabetes mellitus [id number] Not available 06/17/2022 13:29:46 Mother Diabetes mellitus [id number] Not available 06/17/2022 13:29:46 Maternal Grandmother Diabetes mellitus [email or web address] Not available 2023 10:54:35 Medical History Condition Response ARTHRITIS Y Gynecological HistoryNo gynecological history recorded. Obstetrics History GPAL:G 0 P 0 0 0 0 Past Encounters Encounter ID Performer Location Encounter Start Date Encounter Closed Date Diagnosis/Indication Diagnosis SNOMED-CT Code Diagnosis ICD10 Code Diagnosis Note [id number] Jesus Lin MD [facility] [place] [address] [place] [address] 05/15/2022 00:00:00 05/15/2022 12:19:57 [id number] Consuelo Leach NP S[facility] [place] [address] [place] [address] 06/12/2022 00:00:00 06/12/2022 11:41:33 [id number] MD YESICA [facility] [place] [address] [place] [address] 07/01/2022 11:19:25 07/01/2022 12:39:10 Pain of left knee joint 3332069861 28614 M25.562 [id number] Consuelo Leach NP [facility] [place] [address] [place] [address] 07/15/2022 11:07:17 07/15/2022 11:27:04 Pain of left knee joint 4761275412 85650 M25.562 [id number] Jesus Lin MD [facility] [place] [address] [place] [address] 09/16/2022 09:55:19 09/16/2022 10:15:41 Pain of left knee joint 4638180834 63212 M25.562 [id number] Jesus Lin MD [facility] [place] [address] [place] [address] 12/09/2022 15:52:37 12/09/2022 16:50:58 Pain of left knee joint 9826767931 47764 M25.017 [id number] Jesus Lin MD [facility] [place] [address] [place] [address] 02/23/2023 10:49:21 02/23/2023 12:14:48 Pain of left knee joint 0432740987 56938 M25.628 [id number] Jesus Lin MD [facility] [place] [address] [place] [address] 07/16/2023 10:30:23 07/16/2023 10:48:00 Pain of left knee joint 1886161792 66341 M25.562 Pain in limb 77774354 M7 9.331 [id number] Jesus Lin MD [facility] [place] [address] [place] [address] 11/24/2023 10:39:34 11/24/2023 11:20:44 Pain in left foot 6950146360 20636 M79.672 Metatarsal apryl of left foot 5605435439 79001 M77.42 [id number] Jesus Lin MD [facility] [place] [address] [place] [address] 02/16/2024 14:57:28 02/16/2024 15:29:41 Pain of left knee joint 2857666397 47982 M25.105 [id number] Jesus Lin MD [facility] [place] [address] [place] [address] 05/10/2024 13:52:47 05/10/2024 14:19:10 Pain of left knee joint 2237290429 57135 M25.837 [id number] Jesus Lin MD [facility] [place] [address] [place] [address] 08/04/2024 09:27:13 08/04/2024 09:46:03 Pain of left knee joint 2809658232 19527 M25.772 [id number] Jesus Lin MD [facility] [place] [address] [place] [address] 09/20/2024 11:01:47 09/20/2024 11:43:13 Pain of right shoulder region 1340796683 M25.511 Health Concerns Section Related Observation LastModified by Organization Detai ls LastModified Time None Recorded Concern Status LastModified by Organization Details LastModified Time None Recorded Advance Directives Directive None Recorded Payers Insurance Date Sequence Insurance Name Policy Number Policy Mo Covered Member ID Mo Member ID Guarantor Name 09/17/2024 1 [facility] - [employer] - [facility] - MEDICARE COMPLETE CHOICE PLAN 1 (MEDICARE REPLACEMENT PPO) [id number] Roselia Sarmiento [id number] Roselia Sarmiento 09/12/2024 [employer] Roselia Sarmiento 09/18/2024 [employer] Roselia Sarmiento OBGyn Episode No OBEpisode recorded.
--- OUTSIDE RECORDS SUMMARY | 2024-11-08 10:55 | XMS_ITS | Clinical Summary ---
Author Organization [facility] Address [address] [facility] Attn: Epic Prelude ADT LILLIAN ALVA [address] Care Team Providers Care Professional Bondsman Name Role Phone Unavailable Primary Care Provider [...] 1-dose 75+ series) 2021 INFLUENZA VACCINE (#1) 2024
--- NOTE | 2024-11-08 11:30 | NEURO_ITS ---
Impression: # Complains of right upper extremity pain. ? # Normal Nerve Conduction Study. ? # No Carpal Tunnel Syndrome or ulnar neuropathy. ? # Normal needle/EMG exam without neurogenic changes. ? # Clinical correlation recommended. Nerve Conduction Studies ?Stim Site NR Peak (ms) P-T Amp (?V) Site1 Site2 Delta-P (ms) Dist (cm) Lawson (m/s) Right Median Anti Sensory (2-3nd Digit) Wrist ? 3.7 40.6 Wrist 2-3nd Digit 3.7 14.0 38 Wrist ? 3.6 61.6 Wrist 2-3nd Digit 3.7 14.0 38 Right Radial Anti Sensory (Base 1st Digit) Wrist ? 2.8 26.2 Wrist Base 1st Digit 2.8 0.0 Right Ulnar Anti Sensory (5th Digit) Wrist ? 2.8 31.6 Wrist 5th Digit 2.8 14.0 50 ?Stim Site NR Onset (ms) O-P Amp (mV) Site1 Site2 Delta-0 (ms) Dist (cm) Lawson (m/s) Right Median Motor (Abd Poll Brev) Wrist ? 3.6 4.0 Elbow Wrist 5.2 28.0 54 Elbow ? 8.8 5.2 Right Ulnar Motor (Abd Dig Minimi) Wrist ? 2.8 4.6 Right Ulnar Motor Run #2 (Abd Dig Minimi) Wrist ? 2.7 3.1 A Elbow Wrist 5.0 29.0 58 A Elbow ? 7.7 2.8 B Elbow Wrist 3.6 21.0 58 B Elbow ? 6.3 1.9 Electromyography ?Side Muscle Nerve Root Ins Act Fibs Amp Dur Recrt Comment Right 1stDorInt Ulnar C8-T1 Nml Nml Nml Nml Nml Right Ext Indicis Radial (Post Int) C7-8 Nml Nml Nml Nml Nml Right Ext Digitorum Radial (Post Int) C7-8 Nml Nml Nml Nml Nml Right BrachioRad Radial C5-6 Nml Nml Nml Nml Nml Right PronatorTeres Median C6-7 Nml Nml Nml Nml Nml Right Abd Poll Brev Median C8-T1 Nml Nml Nml Nml Nml Right ABD Dig Min Ulnar C8-T1 Nml Nml Nml Nml Nml Right FlexPolLong Median (Ant Int) C7-8 Nml Nml Nml Nml Nml Right Abd Poll Long Radial (Post Int) C7-8 Nml Nml Nml Nml Nml Right Biceps Musculocut C5-6 Nml Nml Nml Nml Nml Right Triceps Radial C6-7-8 Nml Nml Nml Nml Nml Right Deltoid Axillary C5-6 Nml Nml Nml Nml Nml
== END 2024-11-08 10:44 | disposition home or self-care (01) ==
LOC: ANHNEURO 10:46
PROVIDERS: PCP Family Medicine; Visit Provider Nurse Practitioner Family
DX: M25.511 Pain in right shoulder (principal); M79.631 Pain in right forearm
CPT/HCPCS: 95886; 95909

== ENCOUNTER 2024-11-20 09:00 | Outpatient (CLI) | payer MEDICARE, SELFPAY ==
--- NOTE | ~2024-11-20 | MMUS_ITS ---
EXAMINATION: MM diagnostic kyler BI w marychuy, US breast BI complete INDICATION: 79-year old female; follow-up probably benign masses in both breasts COMPARISON: 05/10/2024 through 05/09/2021 TECHNIQUE: Digital breast tomosynthesis True lateral CC and MLO views of BILATERAL breasts were obta ined with computer-aided detection to assist in interpretation of the study. Bilateral focused breast ultrasound was completed. MAMMOGRAM FINDINGS: The breasts are heterogeneously dense, which may obscure small masses. Bilateral breast asymmetries reidentified remained unchanged in the interval. There are no new suspic ious masses, calcifications, architectural distortion or other abnormality in both breasts. BILATERAL BREAST ULTRASOUND FINDINGS: Right breast: A 0.8 x 0.5 x 0.8 cm circumscribed hypoechoic mass at 12:00 location near the areolar r eidentified is Unchanged. A 0.4 cm circumscribed hypoechoic mass at 4:00 location 2 cm from the nipple reidentified is Unchange d A 0.4 cm circumscribed hypoechoic mass at 6:00 location 3 cm from the nipple reidentified is Unchange d A 1.64 cm heterogeneous hypoechoic mass at 8:00 location 5 cm from the nipple reidentified is Unchang ed. This lesion which contains a biopsy clip was previously reported at 9:00 location. Left breast: A 0.7 cm hypoechoic mass at 2:00 location 6 cm from the nipple reidentified is Unchanged. A 0.6 cm circumscribed hypoechoic mass at 3:00 location 3 cm from the nipple reidentified is Unchange d. These lesion was previously described at 2:00, 3 cm from the nipple location. A 0.4 cm circumscribed hypoechoic mass at 7:00 location 2 cm from the nipple reidentified is Unchange d Previously reported hypoechoic masses at 11:00 location are not seen on this examination. IMPRESSION: Bilateral probably benign findings reidentified demonstrate interval stability. RECOMMENDATION: Continue imaging surveillance with short-term follow-up diagnostic bilateral mammography and bilatera l breast ultrasound in 6 months. BI-RADS 3, PROBABLY BENIGN Reviewed, dictated and finalized at location B. IMPRESSION: Bilateral probably benign findings reidentified demonstrate interval stability. RECOMMENDATION: Continue imaging surveillance with short-term follow-up diagnostic bilateral ma mmography and bilateral breast ultrasound in 6 months. BI-RADS 3, PROBABLY BENIGN
== END 2024-11-20 09:01 | disposition home or self-care (01) ==
LOC: MICIMG 09:01
PROVIDERS: PCP Family Medicine; Visit Provider Obstetrics & Gynecology Gynecology
DX: N63.10 Unspecified lump in the right breast, unspecified quadrant (principal); R92.8 Other abnormal and inconclusive findings on diagnostic imaging of breast
CPT/HCPCS: 76641; 77062; 77066; G0279

== ENCOUNTER 2024-12-16 19:11 | Emergency (ER) | payer MEDICARE, SELFPAY ==
--- OUTSIDE RECORDS SUMMARY | 2018-12-23 | XMS_ITS | Encounter Summary ---
Author Organization [facility] Healthcare Address [address] [place] [address] Care Team Providers Care Leather Scraper Name Role Phone Unavailable Primary Care Provider Unavailabl e Reason for Visit * Diagnostic Imaging (Routine) - Closed Specialty Diagnoses / Procedures Referred By George maldonado Referred To Contact Procedures Breast Imaging Screening Outside Reference Araceli Pires NP [address] [id number] [place] [address] Phone: tel: fax: Referral ID Status Reason Start Date Expiration Date Visits Re quested Visits Authorized [id number] Closed 04/05/2023 05/04/2024 1 1 Encounter Details Date Type Department Care Team (Late st Contact Info) Description 12/23/2018 Hospital Encounter [facility] [address] [place] [id number] Social History Tobacco Use Types Packs/Day Years Used Date Smoking Tobacco: Never Smokeless Tobacco: Never Comments No Sex and Gender Information Value Date Recorded Sex Assigned at Not on file Legal Sex Female 7:32 PM ALLIGATOR TRAPPER Gender Identity Not on file Sexual Orientation Not on file documented as of this encounter Plan of Treatment Not on file documented as of this encounter Procedures Procedure Name Priority Date/Time Associated Diagnosis Comments BREAST IMAGING MG SCREENING OUTSIDE REFERENCE Routine 12/23/2018 12:00 AM CDT documented in this encounter Results * Breast Imaging Screening Outside Reference (12/23/2018 12:00 AM CDT) Impressions RAD_MAMMO_[facility] - 04/05/2023 8:32 AM ALLIGATOR TRAPPER These images are for Reference purposes only and have not been reviewed by [facility] Radiology. There will be no report generated by a [facility] Radiologist. Narrative RAD_MAMMO_[facility] - 04/05/2023 8:32 AM ALLIGATOR TRAPPER EXAMINATION: Images For Reference Purposes Only us Araceli Pires NP IMG MAMMO PROCEDURES Final Result RAD_MAMMO_[facility] documented in this encounter Visit Diagnoses Not on filedocumented in this encounter
--- OUTSIDE RECORDS SUMMARY | 2018-12-23 | XMS_ITS | Encounter Summary ---
Author Organization [facility] Healthcare Address [address] [place] [address] Care Team Providers Care Chimney Builder Helper Name Role Phone Unavailable Primary Care Provider Unavailabl e Reason for Visit * Diagnostic Imaging (Routine) - Closed Specialty Diagnoses / Procedures Referred By George maldonado Referred To Contact Procedures Breast Imaging Screening Outside Reference Araceli Pires NP [address] [id number] [place] [address] Phone: tel: fax: Referral ID Status Reason Start Date Expiration Date Visits Re quested Visits Authorized [id number] Closed 04/05/2023 05/04/2024 1 1 Encounter Details Date Type Department Care Team (Late st Contact Info) Description 12/23/2018 Hospital Encounter [facility]iology [facility] [address] [place] [id number] Social History Tobacco Use Types Packs/Day Years Used Date Smoking Tobacco: Never Smokeless Tobacco: Never Comments No Sex and Gender Information Value Date Recorded Sex Assigned at Not on file Legal Sex Female 7:32 PM BUSINESS PLANNING ANALYST Gender Identity Not on file Sexual Orientation Not on file documented as of this encounter Plan of Treatment Not on file documented as of this encounter Procedures Procedure Name Priority Date/Time Associated Diagnosis Comments BREAST IMAGING MG SCREENING OUTSIDE REFERENCE Routine 12/23/2018 12:00 AM CDT documented in this encounter Results * Breast Imaging Screening Outside Reference (12/23/2018 12:00 AM CDT) Impressions RAD_MAMMO_[facility] - 04/05/2023 8:32 AM BUSINESS PLANNING ANALYST These images are for Reference purposes only and have not been reviewed by [facility] Radiology. There will be no report generated by a [facility] Radiologist. Narrative RAD_MAMMO_[facility] - 04/05/2023 8:32 AM BUSINESS PLANNING ANALYST EXAMINATION: Images For Reference Purposes Only us Araceli Pires NP IMG MAMMO PROCEDURES Final Result RAD_MAMMO_[facility] documented in this encounter Visit Diagnoses Not on filedocumented in this encounter
--- OUTSIDE RECORDS SUMMARY | 2019-12-28 | XMS_ITS | Encounter Summary ---
Author Organization [facility] Healthcare Address [address] [place] [address] Care Team Providers Care Manager Research Name Role Phone Unavailable Primary Care Provider Unavailabl e Reason for Visit * Diagnostic Imaging (Routine) - Closed Specialty Diagnoses / Procedures Referred By George maldonado Referred To Contact Procedures Breast Imaging Screening Outside Reference Araceli Pires NP [address] [id number] [place] [address] Phone: tel: fax: Referral ID Status Reason Start Date Expiration Date Visits Re quested Visits Authorized [id number] Closed 04/05/2023 05/04/2024 1 1 Encounter Details Date Type Department Care Team (Late st Contact Info) Description 12/28/2019 Hospital Encounter [facility]iology [facility] [address] [place] [phone] Social History Tobacco Use Types Packs/Day Years Used Date Smoking Tobacco: Never Smokeless Tobacco: Never Comments No Sex and Gender Information Value Date Recorded Sex Assigned at Not on file Legal Sex Female 7:32 PM LAYBOY TENDER Gender Identity Not on file Sexual Orientation Not on file documented as of this encounter Plan of Treatment Not on file documented as of this encounter Procedures Procedure Name Priority Date/Time Associated Diagnosis Comments BREAST IMAGING MG SCREENING OUTSIDE REFERENCE Routine 12/28/2019 12:00 AM CDT documented in this encounter Results * Breast Imaging Screening Outside Reference (12/28/2019 12:00 AM CDT) Impressions RAD_MAMMO_[facility] - 04/05/2023 9:59 AM LAYBOY TENDER These images are for Reference purposes only and have not been reviewed by [facility] Radiology. There will be no report generated by a [facility] Radiologist. Narrative RAD_MAMMO_[facility] - 04/05/2023 9:59 AM LAYBOY TENDER EXAMINATION: Images For Reference Purposes Only us Araceli Pires NP IMG MAMMO PROCEDURES Final Result RAD_MAMMO_[facility] documented in this encounter Visit Diagnoses Not on filedocumented in this encounter
--- OUTSIDE RECORDS SUMMARY | 2019-12-28 | XMS_ITS | Encounter Summary ---
Author Organization [facility] Healthcare Address [address] [place] [address] Care Team Providers Care Entry Level Accountant Name Role Phone Unavailable Primary Care Provider Unavailabl e Reason for Visit * Diagnostic Imaging (Routine) - Closed Specialty Diagnoses / Procedures Referred By George maldonado Referred To Contact Procedures Breast Imaging Screening Outside Reference Araceli Pires NP [address] [id number] [place] [address] Phone: tel: fax: Referral ID Status Reason Start Date Expiration Date Visits Re quested Visits Authorized [id number] Closed 04/05/2023 05/04/2024 1 1 Encounter Details Date Type Department Care Team (Late st Contact Info) Description 12/28/2019 Hospital Encounter [facility] Radiology [facility] [address] [place] [address] Social History Tobacco Use Types Packs/Day Years Used Date Smoking Tobacco: Never Smokeless Tobacco: Never Comments No Sex and Gender Information Value Date Recorded Sex Assigned at Not on file Legal Sex Female 7:32 PM PIG MACHINE SUPERVISOR Gender Identity Not on file Sexual Orientation [...] CDT) Impressions RAD_MAMMO_[facility] - 04/05/2023 9:59 AM PIG MACHINE SUPERVISOR These images are for Reference purposes only and have not been reviewed by [facility] Radiology. There will be no report generated by a [facility] Radiologist. Narrative RAD_MAMMO_[facility] - 04/05/2023 9:59 AM PIG MACHINE SUPERVISOR EXAMINATION: Images For Reference Purposes Only us Araceli Pires NP IMG MAMMO PROCEDURES Final Result RAD_MAMMO_[facility] documented in this encounter Visit Diagnoses Not on filedocumented in this encounter
--- OUTSIDE RECORDS SUMMARY | 2020-01-09 | XMS_ITS | Encounter Summary ---
Author Organization [facility] Healthcare Address [address] [place] [address] Care Team Providers Care Banking Supervisor Name Role Phone Unavailable Primary Care Provider Unavailabl e Reason for Visit * Diagnostic Imaging (Routine) - Closed Specialty Diagnoses / Procedures Referred By George t Referred To Contact Procedures Breast Imaging Diagnostic Outside Reference Araceli Pires NP [address] [phone] [place] [address] Phone: tel: fax: Referral ID Status Reason Start Date Expiration Date Visits Re quested Visits Authorized [id number] Closed 04/05/2023 05/04/2024 1 1 Encounter Details Date Type Department Care Team (Late st Contact Info) Description 01/09/2020 Hospital Encounter [facility]iology [facility] [address] [place] [address] Social History Tobacco Use Types Packs/Day Years Used Date Smoking Tobacco: Never Smokeless Tobacco: Never Comments No Sex and Gender Information Value Date Recorded Sex Assigned at Not on file Legal Sex Female 7:32 PM DAIRY FARM MANAGER Gender Identity Not on file Sexual Orientation Not on file documented as of this encounter Plan of Treatment Not on file documented as of this encounter Procedures Procedure Name Priority Date/Time Associated Diagnosis Comments BREAST IMAGING MG DIAGNOSTIC OUTSIDE REFERENCE Routine 01/09/2020 12:00 AM CDT documented in this encounter Results * Breast Imaging Diagnostic Outside Reference (01/09/2020 12:00 AM CDT) Impressions RAD_MAMMO_[facility] - 04/05/2023 8:37 AM DAIRY FARM MANAGER These images are for Reference purposes only and have not been reviewed by [facility] Radiology. There will be no report generated by a [facility] Radiologist. Narrative RAD_MAMMO_[facility] - 04/05/2023 8:37 AM DAIRY FARM MANAGER EXAMINATION: Images For Reference Purposes Only us Araceli Pires NP IMG MAMMO PROCEDURES Final Result RAD_MAMMO_[facility] documented in this encounter Visit Diagnoses Not on filedocumented in this encounter
--- OUTSIDE RECORDS SUMMARY | 2020-01-09 | XMS_ITS | Encounter Summary ---
Author Organization [facility] Healthcare Address [address] [place] [address] Care Team Providers Care Car Cleaning Supervisor Name Role Phone Unavailable Primary Care Provider Unavailabl e Reason for Visit * Diagnostic Imaging (Routine) - Closed Specialty Diagnoses / Procedures Referred By George t Referred To Contact Procedures Breast Imaging Diagnostic Outside Reference Araceli Pires NP [address] [phone] [place] [address] Phone: tel: fax: Referral ID Status Reason Start Date Expiration Date Visits Re quested Visits Authorized [id number] Closed 04/05/2023 05/04/2024 1 1 Encounter Details Date Type Department Care Team (Late st Contact Info) Description 01/09/2020 Hospital Encounter [facility]iology [facility] [address] [place] [address] Social History Tobacco Use Types Packs/Day Years Used Date Smoking Tobacco: Never Smokeless Tobacco: Never Comments No Sex and Gender Information Value Date Recorded Sex Assigned at Not on file Legal Sex Female 7:32 PM BOWLING ALLEY ATTENDANT Gender Identity Not on file Sexual Orientation [...] CDT) Impressions RAD_MAMMO_[facility] - 04/05/2023 8:37 AM BOWLING ALLEY ATTENDANT These images are for Reference purposes only and have not been reviewed by [facility] Radiology. There will be no report generated by a [facility] Radiologist. Narrative RAD_MAMMO_[facility] - 04/05/2023 8:37 AM BOWLING ALLEY ATTENDANT EXAMINATION: Images For Reference Purposes Only us Araceli Pires NP IMG MAMMO PROCEDURES Final Result RAD_MAMMO[facility] documented in this encounter Visit Diagnoses Not on filedocumented in this encounter
--- OUTSIDE RECORDS SUMMARY | 2020-01-09 00:05 | XMS_ITS | Encounter Summary ---
Author Organization [facility] Healthcare Address [address] [place] [address] Care Team Providers Care Vegetable Trimmer Name Role Phone Unavailable Primary Care Provider Unavailabl e Reason for Visit * Diagnostic Imaging (Routine) - Closed Specialty Diagnoses / Procedures Referred By George t Referred To Contact Procedures Breast Imaging US Outside Reference Araceli Pires NP [address] [id number] [place] [address] Phone: tel: fax: Referral ID Status Reason Start Date Expiration Date Visits Re quested Visits Authorized [id number] Closed 04/05/2023 05/04/2024 1 1 Encounter Details Date Type Department Care Team (Late st Contact Info) Description 01/09/2020 12:05 AM CDT Hospital Encounter [facility] Radiology [facility] [address] [place] [address] Social History Tobacco Use Types Packs/Day Years Used Date Smoking Tobacco: Never Smokeless Tobacco: Never Comments No Sex and Gender Information Value Date Recorded Sex Assigned at Not on file Legal Sex Female 7:32 PM PAPER CUP HANDLE MACHINE OPERATOR Gender Identity Not on file Sexual Orientation Not on file documented as of this encounter Plan of Treatment Not on file documented as of this encounter Procedures Procedure Name Priority Date/Time Associated Diagnosis Comments BREAST IMAGING US OUTSIDE REFERENCE Routine 01/09/2020 12:05 AM CDT documented in this encounter Results * Breast Imaging US Outside Reference (01/09/2020 12:05 AM CDT) Impressions RAD_MAMMO_[facility] - 04/05/2023 8:52 AM PAPER CUP HANDLE MACHINE OPERATOR These images are for Reference purposes only and have not been reviewed by [facility] Radiology. There will be no report generated by a [facility] Radiologist. Narrative RAD_MAMMO_[facility] - 04/05/2023 8:52 AM PAPER CUP HANDLE MACHINE OPERATOR EXAMINATION: Images For Reference Purposes Only us Araceli Pires NP IMG MAMMO PROCEDURES Final Result [facility]_MAMMO[facility] documented in this encounter Visit Diagnoses Not on filedocumented in this encounter
--- OUTSIDE RECORDS SUMMARY | 2020-01-09 00:05 | XMS_ITS | Encounter Summary ---
Author Organization [facility] Healthcare Address [address] [place] [address] Care Team Providers Care Home Health Care Provider Name Role Phone Unavailable Primary Care Provider Unavailabl e Reason for Visit * Diagnostic Imaging (Routine) - Closed Specialty Diagnoses / Procedures Referred By George t Referred To Contact Procedures Breast Imaging US Outside Reference Araceli Pires NP [address] [phone] [place] [address] Phone: tel: fax: Referral ID Status Reason Start Date Expiration Date Visits Re quested Visits Authorized [id number] Closed 04/05/2023 05/04/2024 1 1 Encounter Details Date Type Department Care Team (Late st Contact Info) Description 01/09/2020 12:05 AM CDT Hospital Encounter [facility] Radiology [facility] [address] [place] [address] Social History Tobacco Use Types Packs/Day Years Used Date Smoking Tobacco: Never Smokeless Tobacco: Never Comments No Sex and Gender Information Value Date Recorded Sex Assigned at Not on file Legal Sex Female 7:32 PM NYLON MACHINE OPERATOR Gender Identity Not on file [...] CDT) Impressions RAD_MAMMO_[facility] - 04/05/2023 8:52 AM NYLON MACHINE OPERATOR These images are for Reference purposes only and have not been reviewed by [facility] Radiology. There will be no report generated by a [facility] Radiologist. Narrative RAD_MAMMO_[facility] - 04/05/2023 8:52 AM NYLON MACHINE OPERATOR EXAMINATION: Images For Reference Purposes Only us Araceli Pires NP IMG MAMMO PROCEDURES Final Result RAD_MAMMO_[facility] documented in this encounter Visit Diagnoses Not on filedocumented in this encounter
--- OUTSIDE RECORDS SUMMARY | 2024-12-16 19:16 | XMS_ITS | Clinical Summary ---
Author Organization [facility] Address [address] [place] [id number] Care Team Providers Care Improvement Rn Name Role Phone Camryn Noe MD Primary Care Provider [phone] Tess Christiansen MD Unavailable [phone] Allergies Active Allergy Reactions Criticality Noted Date [...] mg tablet 07/03/2014Ibuprofen, po solid 400 mg [id number] PRN painCurrent Medication 07/04/19 15 Active cetirizine (ZyrTEC) 10 mg tablet 07/03/2014Zyrtec, po solid 10 mg TabletPOdailyCurrent Medication 07/04/19 15 Active cyanocobalami n/folic acid (vitamin L04-myqkk acid) 500-400 mcg tablet 07/03/2014Vitamin l18-pmspn acid, po solid 500-400mcg TabletPOdailyCurrent Medication 07/04/19 [...] on file 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 History taking vitamin-D, calcium and hormone replacement therapy. 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 TW: TW Report ID: [id number] Reading Location: [id number] Procedure Note Alyson Pandey MD - 06/06/2024 EXAM DESCRIPTION: DEXA AXIAL SKELETON BONE DENSITY 1 OR MORE SITES REASON FOR STUDY: 78 y/o year old F with given history of:Postmenopausal status. History taking vitamin-D, calcium and hormone replacementtherapy. 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 TW: TW Report ID: [id number] Reading Location: [place] [address] Tess Christiansen MD IM DXA PROCEDURES Final Result from Last 3 Months or Most Recently Relevant to Health Maintenance Insurance Care Teams Improvement Rn Relationship Specialty Start Date End Date Camryn Noe MD PCP - General Family Medicine 01/10/20 Tess Christiansen MD [address] [place] [phone] Referring Physician Gynecology 03/22/23
--- OUTSIDE RECORDS SUMMARY | 2024-12-16 19:16 | XMS_ITS | Clinical Summary ---
Author Organization [facility] Address [address] [facility] [place] [address] Care Team Providers Care Transformation Analyst Name Role Phone Camryn Noe MD Primary Care Provider [phone] Source Comments [facility],non-owned Affiliates and Associated Physician Practices is amultiple site organization consisting of ambulatory clinics and hospital sitesin [place], [place] and [place]. This disclosure is being madepursuant to the Care Everywhere program and may not contain all information available regarding this patient. 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 Mikayla Flores. These tests need not be, and therefore are not, approved by the [place] Food and Drug Administration. The tests are used for clinical purposes. Billing Codes Specimen Charges Stain Charges 33299 1 5 2:20 PM CDT DERMATOPATHOLOGY LABORATORY Embedded Images 5 2:20 PM CDT DERMATOPATHOLOGY LABORATORY Pathology/Cytolo gy TISSUE SPECIMEN FROM SKIN / Unknown 10/26/2024 10:52 AM CDT 10/27/2024 8:46 AM CDT Coleen George DO LAB - PATHOLOGY/CYTOLOGY ORDERABLES Final Result DERMATOPATHOLOGY LABORATORY [facility] - Department of Dermatology [address], [address] [phone] from Last 3 Months Insurance [facility] MEDICARE ADV SELF PAY NO INSURANCE Member Subscriber Plan / Payer (Ef fective for All Dates) Name:Roselia Martin Member ID:Not on file Relation to Subscriber:Not on file Name:ROSELIA MARTIN Subscriber ID:Not on file (Home) Address: [address] [place] [id number] Payer ID:Not on file Group ID:Not on file Type:Self Pay Address: [facility] MANAGED MEDICARE ADV Care Teams Transformation Analyst Relationship Specialty Start Date End Date Camryn Noe MD [address] [place] [address] PCP - General 05/22/08
--- OUTSIDE RECORDS SUMMARY | 2024-12-16 19:16 | XMS_ITS | Clinical Summary ---
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
--- OUTSIDE RECORDS SUMMARY | 2024-12-16 19:16 | XMS_ITS | Clinical Summary ---
Author Organization [facility] Address [address] [facility] Attn: Epic Prelude ADT [place] [address] Care Team Providers Care Supervisor Pipeline Name Role Phone Unavailable Primary Care Provider [...]
[2024-12-16 19:17] VITALS: BP 134/62; PULSE 100; RESP 16; TEMP 36.4; O2SAT 100
--- OUTSIDE RECORDS SUMMARY | 2024-12-16 19:58 | XMS_ITS | Clinical Summary ---
Author Organization [facility] Address [address] [facility] [place] [address] Care Team Providers Care Construction Field Engineer Name Role Phone Camryn Noe MD Primary Care Provider [phone] Source Comments [facility],non-owned Affiliates and Associated Physician Practices is amultiple site organization consisting of ambulatory clinics and hospital sitesin [place], [place], [place] and [place]. This disclosure is being madepursuant to the Care Everywhere program and may not contain all information available regarding this patient. 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 Mikayla Flores. These tests need not be, and therefore are not, approved by the [place] Food and Drug Administration. The tests are used for clinical purposes. Billing Codes Specimen Charges Stain Charges 74856 1 5 2:20 PM CDT DERMATOPATHOLOGY LABORATORY Embedded Images 5 2:20 PM CDT DERMATOPATHOLOGY LABORATORY Pathology/Cytolo gy TISSUE SPECIMEN FROM SKIN / Unknown 10/26/2024 10:52 AM CDT 10/27/2024 8:46 AM CDT Coleen George DO LAB - PATHOLOGY/CYTOLOGY ORDERABLES Final Result DERMATOPATHOLOGY LABORATORY [facility] - Department of Dermatology [address] [phone] from Last 3 Months Insurance [facility] MEDICARE ADV SELF PAY NO INSURANCE Member Subscriber Plan / Payer (Ef fective for All Dates) Name:Roselia Martin Member ID:Not on file Relation to Subscriber:Not on file Name:ROSELIA MARTIN Subscriber ID:Not on file (Home) Address: [address] [place] [id number] Payer ID:Not on file Group ID:Not on file Type:Self Pay Address: [facility] MANAGED MEDICARE ADV Care Teams Construction Field Engineer Relationship Specialty Start Date End Date Camryn Noe MD [address] [place] [address] PCP - General 05/22/08
--- OUTSIDE RECORDS SUMMARY | 2024-12-16 19:58 | XMS_ITS | Clinical Summary ---
Author Organization [facility] Address [address] [place] [address] Care Team Providers Care Clinical Exercise Specialist Name Role Phone Camryn Noe MD Primary Care Provider Tess Christiansen MD Unavailable [phone] Allergies Active Allergy Reactions Criticality Noted Date [...] mg tablet 07/03/2014Ibuprofen, po solid 400 mg [id number] PRN painCurrent Medication 07/04/19 15 Active cetirizine (ZyrTEC) 10 mg tablet 07/03/2014Zyrtec, po solid 10 mg TabletPOdailyCurrent Medication 07/04/19 15 Active cyanocobalami n/folic acid (vitamin O68-rmqef acid) 500-400 mcg tablet 07/03/2014Vitamin e58-bvwcv acid, po solid 500-400mcg TabletPOdailyCurrent Medication 07/04/19 [...] on file 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 Gender Identity Not on file Sexual Orientation [...] Read Routine (OP Routine) 06/02/2024 9:13 AM COMPUTER NETWORK SPECIALIST Postmenopause from Last 3 Months or Most Recently Relevant to Health Maintenance Results * Dexa Axial Skeleton Bone Density 1 or 2 Site (06/02/2024 9:13 AM COMPUTER NETWORK SPECIALIST) Anatomical Region Laterality Modality Body N/A Mammography 06/06/2024 8:32 AM COMPUTER NETWORK SPECIALIST Narrative 06/06/2024 8:33 AM COMPUTER NETWORK SPECIALIST EXAM DESCRIPTION: DEXA AXIAL SKELETON BONE DENSITY 1 OR MORE SITES REASON FOR STUDY: 78 y/o year old F with given history of: Postmenopausal status. History taking vitamin-D, calcium and hormone replacement therapy. Skilled Nursing Case Manager/Model: [employer] A (S/N [id number]) Facility LSC value of 0.022 for the [...] Alyson Pandey M.D. TW: TW Report ID: [id number] Reading Location: [id number] Procedure Note Alyson Pandey MD - 06/06/2024 EXAM DESCRIPTION: DEXA AXIAL SKELETON BONE DENSITY 1 OR MORE SITES REASON FOR STUDY: 78 y/o year old F with given history of:Postmenopausal status. History taking vitamin-D, calcium and hormone replacementtherapy. Skilled Nursing Case Manager/Model: [employer] A (S/N [id number]) Facility LSC value of 0.022 for the [...] Alyson Pandey M.D. TW: TW Report ID: [id number] Reading Location: [place] [address] Tess Christiansen MD IM DXA PROCEDURES Final Result from Last 3 Months or Most Recently Relevant to Health Maintenance Insurance Care Teams Clinical Exercise Specialist Relationship Specialty Start Date End Date Camryn Noe MD PCP - General Family Medicine 01/10/20 Tess Christiansen MD [address] [place] [phone] Referring Physician Gynecology 03/22/23
--- OUTSIDE RECORDS SUMMARY | 2024-12-16 19:58 | XMS_ITS | Encounter Summary ---
Author Organization [facility] Address [address] [facility] [place] [address] Care Team Providers Care Motor Hotel Manager Name Role Phone Camryn Noe MD Primary Care Provider [phone] Encounter Details Date Type Department Care Team (Late st Contact Info) Description 10/26/2024 Lab Requisition [facility] - DermPath Lab [address] 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 Gender Identity Not on file Sexual Orientation Not on file documented as of this encounter Plan of Treatment Not on file documented as of this encounter Procedures Procedure Name Priority Date/Time Associated Diagnosis Comments DERMATOPATHOLOGY Routine 10/26/2024 10:5 2 AM CDT documented in this encounter Results * DERMATOPATHOLOGY (10/26/2024 10:52 AM CDT) Case Report Dermatopathology Report Case: [id number] Authorizing Provider: Coleen George DO Collected: 10/26/2024 10:52 AM Ordering Location: [facility] - Received: 10/27/2024 08:46 AM [...] characteristic determined by the Dermatopathology Laboratory at [facility], directed by Dr. Mikayla Flores. These tests need not be, and therefore are not, approved by the [place] Food and Drug Administration. The tests are used for clinical purposes. Billing Codes Specimen Charges Stain Charges 26336 1 2:20 PM CDT DERMATOPATHOLOGY LABORATORY Embedded Images 2:20 PM CDT DERMATOPATHOLOGY LABORATORY Pathology/Cytolo gy TISSUE SPECIMEN FROM SKIN / Unknown 10/26/2024 10:52 AM CDT 10/27/2024 8:46 AM CDT us Coleen George DO LAB - PATHOLOGY/CYTOLOGY ORDERABLES Final Result DERMATOPATHOLOGY LABORATORY [facility] - Department of Dermatology [address] [phone] documented in this encounter Visit Diagnoses Not on filedocumented in this encounter Care Teams Motor Hotel Manager Relationship Specialty Start Date End Date Camryn Noe MD [address] [place] [address] PCP - General 2/3/09 documented as of this encounter
--- OUTSIDE RECORDS SUMMARY | 2024-12-16 19:58 | XMS_ITS | Clinical Summary ---
Author Organization [facility] Address [address] [facility] Attn: Epic Prelude ADT [place] [address] Care Team Providers Care Coin Box Inspector Name Role Phone Unavailable Primary Care Provider [...]
--- OUTSIDE RECORDS SUMMARY | 2024-12-16 19:58 | XMS_ITS | Clinical Summary ---
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
--- NOTE | 2024-12-16 20:16 | ED.GENADULT ---
HPI - General Adult General Chief complaint: Wound/Laceration Stated complaint: skin tear L forearm Time Seen by Provider: 12/16/24 19:48 History of Present Illness HPI narrative: Patient 79-year-old female who presents emergency department with chief complaint of skin tear to left forearm. The patient reports that her per slid and scraped her left forearm the patient reports that she has skin tears very easily reports no other injuries reports that she will check tomorrow with her provider that does her immunizations as she believes that she is up-to-date on her tetanus Related Data Home Medications ?Medication ?Instructions ?Recorded ?Confirmed ?Last Taken ?Type calcium 500 mg (as 1 tablet PO DAILY 03/27/19 11/22/24 Unknown History carbonate)-vitamin D3 5 mcg (200 unit) tablet (Calcium 500 + D) estradiol 0.5 mg tablet 0.5 mg PO DAILY 03/27/19 11/22/24 Unknown History medroxyprogesterone 2.5 mg tablet 5 mg PO DAILY 03/27/19 11/22/24 Unknown History (Provera) loratadine 10 mg tablet 10 mg PO DAILY 01/15/21 11/22/24 Unknown History acetaminophen 650 mg 650 mg PO .qd-bid PRN Pain 01/29/22 11/22/24 10/09/24 History tablet,extended release (Tylenol 8 Hour) Allergies Allergy/AdvReac Type Severity Reaction Status Date / Time Penicillins Allergy Unknown Hives Verified 11/22/24 14:58 cortisone AdvReac Severe facial Verified 11/22/24 14:58 flushing furosemide AdvReac Mild Pt just Verified 11/22/24 14:58 felt off Review of Systems Review of Systems: A 10 system review of systems was completed on the patient and is negative except for what is stated in the HPI. Nursing and ancillary documentation was reviewed. [facility] Past Medical History Medical History PONV (postoperative nausea and vomiting) (normal spontaneous vaginal delivery) Chronic rhinitis Migraine without aura and without status migrainosus, not intractable Primary osteoarthritis of both knees Vitamin B12 deficiency Vitamin D deficiency Surgical History Surgical History History of breast biopsy 2019 benign History of bilateral breast reduction surgery and breast lift 2010 History of laparoscopy 2005 History of hysteroscopy 2004, 2005, 2013, 2022; 2004 showed simple hyperplasia without atypia 2005 and 2013 were benign History of bilateral tubal ligation Family History Family History Other Diabetes mellitus Family history of cardiovascular disease Social History Social History Smoking status: Never smoker Second hand tobacco smoke exposure: No Alcohol intake: never Substance use: never Substance use type: does not use Lack of Transportation: No Lack of Food: Never True Current Housing: I Have Housing Concerned About Future Housing: No Difficulty Paying Gas/Electric Bills: No Difficulty Paying for Meds: No Currently Unemployed: No Education: Trade/Vocational Certificate Difficulty w/ Childcare or Family Care: No Living arrangements: alone Gender identity (if verbalized by the patient): Female Spiritual care concerns: No Agree to blood products: Yes Exam Narrative: GENERAL: Well-appearing, well-nourished, and in no acute distress. HEAD: Normocephalic, atraumatic. EYES: PERRLA and EOMI. ENT: Nares clear, no rhinorrhea or epistaxis. Mucous membranes moist. NECK: Supple. CHEST: Clear to auscultation. No respiratory distress. HEART: Regular rate and rhythm. No murmur heard. Normal peripheral pulses. ABDOMEN: Soft, nontender, nondistended, normal active bowel sounds. EXTREMITIES: Normal range of motion. No edema. SKIN: Warm, dry, no rash. Skin tear present the left forearm NEURO: No focal deficits. Alert and oriented x3. PSYCH: Normal mood and affect. Course Vital Signs Vital signs: Vital Signs Temperature 36.4 C 12/16/24 19:17 Pulse Rate 100 12/16/24 19:17 Respiratory Rate 16 12/16/24 19:17 Blood Pressure 134/62 12/16/24 19:17 Pulse Oximetry 100 12/16/24 19:17 Oxygen Delivery Room Air 12/16/24 19:17 Temperature 36.4 C 12/16/24 19:17 Pulse Rate 100 12/16/24 19:17 Respiratory Rate 16 12/16/24 19:17 Blood Pressure 134/62 12/16/24 19:17 Pulse Oximetry 100 12/16/24 19:17 Oxygen Delivery Room Air 12/16/24 19:17 Medical Decision Making MDM Narrative Medical decision making narrative: Patient has no other injuries the wound was Steri-Stripped by nursing staff and nonadherent dressing was applied the patient was given wound care instructions and will be discharged home Vital Signs Vital Signs: Vital Signs Temperature 36.4 C 12/16/24 19:17 Pulse Rate 100 12/16/24 19:17 Respiratory Rate 16 12/16/24 19:17 Blood Pressure 134/62 12/16/24 19:17 Pulse Oximetry 100 12/16/24 19:17 Oxygen Delivery Room Air 12/16/24 19:17 Temperature 36.4 C 12/16/24 19:17 Pulse Rate 100 12/16/24 19:17 Respiratory Rate 16 12/16/24 19:17 Blood Pressure 134/62 12/16/24 19:17 Pulse Oximetry 100 12/16/24 19:17 Oxygen Delivery Room Air 12/16/24 19:17 Discharge Plan Discharge Clinical Impression: Skin tear of left forearm without complication Patient Disposition: Home Condition: Stable Instructions: Antibiotic Form, Skin Avulsion (ED), Skin Adhesive Strips (ED) Patient Language: Tajik Prescriptions: No Action calcium carbonate-vitamin D3 [Calcium 500 + D] 500 mg(1,250mg) -200 unit tablet 1 tablet PO DAILY estradiol 0.5 mg tablet 0.5 mg PO DAILY medroxyprogesterone [Provera] 2.5 mg tablet 5 mg PO DAILY acetaminophen [Tylenol 8 Hour] 650 mg tablet extended release 650 mg PO .qd-bid PRN (Reason: Pain) ergocalciferol (vitamin D2) [Vitamin D2] 1,250 mcg (50,000 unit) capsule 1,250 mcg PO .EVERY OTHER WEEK Qty: 12 2RF Patient Comments: TAKES ON WEDNESDAY cyanocobalamin (vitamin B-12) 1,000 mcg/mL solution 1,000 mcg IM MONTHLY Qty: 3 12RF Patient Comments: TAKES ON THE Rx Instructions: as directed monthly meclizine 25 mg tablet 25 mg PO TID PRN (Reason: dizziness) Qty: 60 2RF prochlorperazine maleate [Compazine] 10 mg tablet 10 mg PO Q8H PRN (Reason: nausea and vomiting) Qty: 10 5RF (DME) Monoject Safety Syringes 3 mL 25 gauge x 5/8 syringe See Rx Instructions .Route Qty: 10 3RF Rx Instructions: Use for monthly injection loratadine 10 mg tablet 10 mg PO DAILY montelukast [Singulair] 10 mg tablet 10 mg PO QHS Qty: 90 2RF triamcinolone acetonide 0.1 % ointment See Rx Instructions .ROUTE .COMPLEX Qty: 30 3RF Dose Instruction: APPLY THIN LAYER EXTERNALLY TO THE AFFECTED AREA TWICE DAILY Rx Instructions: APPLY THIN LAYER EXTERNALLY TO THE AFFECTED AREA TWICE DAILY Follow-up/Referrals: Camryn Noe MD [Primary Care Provider, Family Practice] Stand Alone Forms: Work/School Release IP Time of Disposition: 20:18
[2024-12-16 20:39] VITALS: BP 147/73; PULSE 85; RESP 14; O2SAT 98
== END 2024-12-16 20:33 | disposition home or self-care (01) ==
PROVIDERS: Emergency Provider Emergency Medicine; PCP Family Medicine
DX: S51.812A Laceration without foreign body of left forearm, initial encounter (principal); E53.8 Deficiency of other specified B group vitamins; E55.9 Vitamin D deficiency, unspecified; M17.0 Bilateral primary osteoarthritis of knee; J31.0 Chronic rhinitis; Z79.890 Hormone replacement therapy; W26.8XXA Contact with other sharp object(s), not elsewhere classified, initial encounter
CPT/HCPCS: 99282